=== PATIENT | female | born 1955 | race Caucasian/White ===

== ENCOUNTER 2019-12-21 17:57 | Inpatient (IN) ==
[2019-12-21] MEDS ORDERED: IPRATROPIUM/ALBUTEROL 3 ML AMPUL.NEB NEB ONE ×2 (19:30→23:26)
[2019-12-21] MEDS ORDERED: methylPREDNISolone SOD SUCC 125 MG/2 ML VIAL IV ONE (19:30)
[2019-12-21] MEDS ORDERED: 0.9 % SODIUM CHLORIDE 1,000 ML IV ONE ×2 (19:30→20:52)
--- NOTE | 2019-12-21 19:34 | Emergency Department Note ---
SOB HPI - General Chief Complaint: Cold/Flu Symptoms Stated Complaint: Flu symptoms Time Seen by Provider: 12/21/19 19:03 Source: patient, family Mode of arrival: ambulatory Limitations: no limitations - History of Present Illness 64-year-old female patient presents emergency department with chief complaint of worsening shortness of breath, myalgias, and fevers. Patient was evaluated in our emergency department yesterday by a colleague and diagnosed with for the We dn. She was treated with IV rehydration, steroids, and started on Tamiflu. During her work-up she did have a noted developing right-sided infiltrate on chest x-ray. She admits that the provider recommended that she stay in the hospital but she declined this. Unfortunately, since being at home she has worsened. She continues to be febrile in triage at 100.6 in triage. SPO2 is 88- 91% on room air. She does continue to feel very short of breath. Patient does have a documented history of COPD and is a former smoker. She complains of fulminant body aches throughout. She admits to nausea but no vomiting. She denies diarrhea or constipation. She denies dysuria. She denies focal weak ness. She denies retrosternal chest pain or palpitations. She admits to ongoing sinus congestion. She admits to mild cough. A review of her active problems shows the following: Acute COPD exacerbation, influenza, pneumonia, chest pain at rest, oral thrush, history of tobacco abuse, urinary incontinence, lumbar degenerative disc disease, and multiple joint pain. - Related Data Home Medications Medication Instructions Recorded Confirmed Cock up wrist splint (R) 1 dose .ROUTE .MEDSUPPLY 12/21/19 12/21/19 Previous Rx's Medication Instructions Recorded fluticasone 250 mcg-salmeterol 50 1 inh INHALATION Q12H #180 each 07/09/19 mcg/dose blistr powdr for inhalation citalopram 40 mg tablet 40 mg PO QDAY #90 tab 08/06/19 celecoxib 100 mg capsule 100 mg PO BID #180 cap 10/07/19 ipratropium 20 mcg-albuterol 100 1 puff INHALATION Q6H PRN #4 g 11/06/19 mcg/actuation mist for inhalation tramadol 50 mg tablet 50 mg PO Q6H PRN #100 tab 11/26/19 Albuterol Sulfate [Ventolin] 2 puff INH Q4-6HP PRN #1 inhaler 12/21/19 Oseltamivir Phosphate [Tamiflu] 75 mg PO BID #10 cap 12/21/19 predniSONE [Prednisone] 10 mg PO DAILY #30 tab 12/21/19 Allergies Allergy/AdvReac Type Severity Reaction Status Date / Time No Known Drug Allergies Allergy Unknown Unknown Verified 12/21/19 17:59 Review of Systems All systems ED: reviewed and negative except as stated. Past Medical History - Past Medical History Medical history: Reports: COPD, other (thrush, lumbar DDD) Surgical history ED: Reports: other (carpal tunnel release) - Social History smoking status: Former smoker Physical Exam Limitations: no limitations General appearance: alert, anxious, other (Well-developed, well-nourished, chronically ill appearing 64-year-old female patient sitting upright on the emergency room gurney in obvious discomfort. She is in no apparent respiratory distress. She is speaking in full complete sentences.) Head: atraumatic, normocephalic Eye: Present: normal appearance, PERRL, EOMI. Absent: scleral icterus, conjunctival injection ENT: Present: normal oropharynx, mucous membranes dry, TM's normal bilaterally, nasal congestion (Considerable bilateral nasal erythema) Neck: Present: trachea midline. Absent: lymphadenopathy, thyromegaly Chest: Present: symmetric chest wall rise Respiratory: Present: wheezes (Wheezing heard to the right middle and upper chest), prolonged expiratory phase, decreased breath sounds, other (No rhonchi heard.). Absent: respiratory distress, rales/crackles, stridor, accessory muscle use Cardiovascular: Present: regular rate, normal rhythm. Absent: systolic murmur, diastolic murmur Abdominal: Present: soft. Absent: distention, tenderness, guarding, rebound, rigidity, organomegaly, mass Extremities: Present: normal inspection, full ROM, normal capillary refill. Absent: pedal edema Back: Present: normal inspection, full ROM Neurological: Present: alert, oriented X3 Psychiatric: Present: normal affect, anxious Skin: Present: warm, dry, pallor Course Course Narrative: Patient was brought into the emergency department and a history and physical exam was performed. Saline lock was established and repeat laboratory studies were drawn. Repeat two-view chest x-ray was ordered and reviewed. Patient was given normal saline 1000 mL a bolus. She has already taken her second dose of Tamiflu for today. She was given Solu-Medrol 62.5 mg IVP. She was also started on a duo nebulizer breathing treatment. Patient's SPO2 was noted to be 90-91% on room air. She was started on nasal cannula at 1 L/min. A review of her laboratory studies show the following: CBC WBC 15.9, granulocyte percent 87.3, granulocyte #13.88. CMP glucose 142, alkaline phosphatase 36, all others normal limits. Lactic acid 1.2. Procalcitonin 12.09. Two-view chest x-ray read by the radiologist as diffuse bilateral interstitial infiltrates again noted. There is a new superimposed pneumonia in the periphery of the left upper mid lung. ABG pH 7.43, CO2 34, O2 59, HCO3 22.6. After reviewing the data blood cultures were ordered. Patient was started on Rocephin 1 g and azithromycin 500 mg IV for the new developing pneumonia. After reviewing all the data I reached out to our hospitalist (Dr. Esteves) about possible admission. At this time Dr. Esteves concurs that this is likely a developing bacterial pneumonia associated with the flulike illness she has been suffering from. He is consented to admit the patient to the hospital under his care. At this time all further treatment decisions, modalities, and ultimate patient disposition will be carried out by Dr. Esteves. Vital Signs Temperature 100.6 F H 12/21/19 17:59 Pulse Rate 87 12/21/19 17:59 Respiratory Rate 20 12/21/19 17:59 Blood Pressure 105/66 12/21/19 17:59 Pulse Oximetry (%) 93 12/21/19 17:59 Temperature 98.3 F 12/21/19 20:58 Pulse Rate 82 12/21/19 20:01 Respiratory Rate 16 12/21/19 19:54 Blood Pressure 96/57 12/21/19 20:01 Pulse Oximetry (%) 95 12/21/19 20:01 Shortness of Breath/Dyspnea - Lab Data Lab results reviewed: Yes I reviewed the patient's lab results. Result diagrams: 12/21/19 18:54 12/21/19 18:54 Lab Results 12/21/19 12/21/19 12/21/19 Range/Units 18:54 18:54 18:54 WBC 15.9 H (4.50-11.00) K/mcL RBC 3.90 (3.59-5.38) M/mcL Hgb 12.1 (11.2-15.7) g/dL Hct 35.4 (34.1-44.9) % MCV 90.8 (80.0-100.0) fL MCH 31.0 (26.0-34.0) pg MCHC 34.2 (31.0-36.0) g/dL RDW 12.3 (11.5-14.5) % Plt Count 210 (140-440) K/mcL MPV 11.1 H (7.4-10.4) fL Gran % 87.3 H (38.0-78.0) % Lymph % (Auto) 5.9 L (15.5-49.0) % [place] % (Auto) 6.2 (1.0-12.0) % Eos % (Auto) 0.4 (0.0-7.0) % Baso % (Auto) 0.2 (0.0-2.0) % Gran # 13.88 H (1.80-8.00) K/mcL Lymph # (Auto) 0.93 L (1.50-4.80) K/mcL [place] # (Auto) 0.98 H (0.10-0.90) K/mcL Eos # (Auto) 0.06 (0.00-0.70) K/mcL Baso # (Auto) 0.03 (0.00-0.30) K/mcL VBG Lactic Acid (0.5-2.0) mmol/L Sodium 137 (133-145) mmol/L Potassium 3.7 (3.3-5.1) mmol/L Chloride 102 (96-108) mmol/L Carbon Dioxide 23 (22-30) mmol/L Anion Gap 12.0 (8-16) BUN 20 (8-23) mg/dl Creatinine 0.9 (0.6-1.1) mg/dl GFR Calculation 68 Glucose 142 H (70-105) mg/dL Calcium 8.8 (8.6-10.4) mg/dl Total Bilirubin 0.4 (0.0-1.0) mg/dL AST 14 (0-37) U/l ALT 10 (0-40) U/l Alkaline Phosphatase 36 L (39-117) U/L Total Protein 6.7 (5.9-8.4) gm/dL Albumin 3.6 (3.2-5.2) gm/dL Globulin 3.1 (2.2-3.7) gm/dL Albumin/Globulin Ratio 1.2 (1.0-2.3) Procalcitonin 12.09 (<0.10) ng/mL 12/21/19 Range/Units 19:50 WBC (4.50-11.00) K/mcL RBC (3.59-5.38) M/mcL Hgb (11.2-15.7) g/dL Hct (34.1-44.9) % MCV (80.0-100.0) fL MCH (26.0-34.0) pg MCHC (31.0-36.0) g/dL RDW (11.5-14.5) % Plt Count (140-440) K/mcL MPV (7.4-10.4) fL Gran % (38.0-78.0) % Lymph % (Auto) (15.5-49.0) % [place] % (Auto) (1.0-12.0) % Eos % (Auto) (0.0-7.0) % Baso % (Auto) (0.0-2.0) % Gran # (1.80-8.00) K/mcL Lymph # (Auto) (1.50-4.80) K/mcL [place] # (Auto) (0.10-0.90) K/mcL Eos # (Auto) (0.00-0.70) K/mcL Baso # (Auto) (0.00-0.30) K/mcL VBG Lactic Acid 1.2 (0.5-2.0) mmol/L Sodium (133-145) mmol/L Potassium (3.3-5.1) mmol/L Chloride (96-108) mmol/L Carbon Dioxide (22-30) mmol/L Anion Gap (8-16) BUN (8-23) mg/dl Creatinine (0.6-1.1) mg/dl GFR Calculation Glucose (70-105) mg/dL Calcium (8.6-10.4) mg/dl Total Bilirubin (0.0-1.0) mg/dL AST (0-37) U/l ALT (0-40) U/l Alkaline Phosphatase (39-117) U/L Total Protein (5.9-8.4) gm/dL Albumin (3.2-5.2) gm/dL Globulin (2.2-3.7) gm/dL Albumin/Globulin Ratio (1.0-2.3) Procalcitonin (<0.10) ng/mL - Radiology Data Radiology results reviewed: Yes I reviewed the patient's radiology results. 2 view chest x-ray read by the radiologist as diffuse bilateral interstitial infiltrates again noted. There is a new superimposed pneumonia in the periphery of the left upper mid lung. Disposition Pt seen by [employer]PERATOR/PA only: Yes Clinical Impression: Acute exacerbation of chronic obstructive airways disease, Influenza Pneumonia Qualifiers: Pneumonia type: due to unspecified organism Laterality: left Lung location: upper lobe of lung Qualified Code(s): J18.9 - Pneumonia, unspecified organism Disposition: Xfer As Inpt ([facility]) Condition: Fair Additional Instructions: Patient is being admitted to the hospital under the care of the hospitalist (Dr. Esteves). All further treatment decisions, modalities, and ultimate patient disposition will be carried out by Dr. Esteves. Referrals: Pilo Ramon MD [Primary Care Provider] - Time of Disposition: 21:51
[2019-12-21 19:45] LABS: Basophils # (Auto) 0.03 K/mcL (0.00-0.30); Basophils % (Auto) 0.2 % (0.0-2.0); Eosinophils # (Auto) 0.06 K/mcL (0.00-0.70); Eosinophils % (Auto) 0.4 % (0.0-7.0); Granulocytes % (Auto) 87.3 % (38.0-78.0); Hematocrit 35.4 % (34.1-44.9); Hemoglobin 12.1 g/dL (11.2-15.7); Lymphocytes # (Auto) 0.93 K/mcL (1.50-4.80); Lymphocytes % (Auto) 5.9 % (15.5-49.0); Mean Cell Volume 90.8 fL (80.0-100.0); Mean Corpuscular HGB Conc 34.2 g/dL (31.0-36.0); Mean Platelet Volume 11.1 fL (7.4-10.4); Monocytes # (Auto) 0.98 K/mcL (0.10-0.90); Monocytes % (Auto) 6.2 % (1.0-12.0); Platelet Count 210 K/mcL (140-440); Red Cell Distribution Width 12.3 % (11.5-14.5); WBC 15.9 K/mcL (4.50-11.00)
[2019-12-21 20:00] LABS: ALT/SGPT 10 U/l (0-40); AST/SGOT 14 U/l (0-37); Albumin 3.6 gm/dL (3.2-5.2); Albumin/Globulin Ratio 1.2 (1.0-2.3); Alkaline Phosphatase 36 U/L (39-117); Bilirubin,Total 0.4 mg/dL (0.0-1.0); Blood Urea Nitrogen 20 mg/dl (8-23); Calcium 8.8 mg/dl (8.6-10.4); Carbon Dioxide 23 mmol/L (22-30); Chloride 102 mmol/L (96-108); Globulin 3.1 gm/dL (2.2-3.7); Glomerular Filtration Rate 68; Glucose 142 mg/dL (70-105)
[2019-12-21] MEDS ORDERED: ACETAMINOPHEN 325 MG TABLET PO ONE (20:13)
[2019-12-21] MEDS ORDERED: AZITHROMYCIN 500 MG in DEXTROSE 5% IN WATER 250 ML IV ONE (20:46)
[2019-12-21] MEDS ORDERED: cefTRIAXone 1 GM VIAL IV ONE (20:46)
--- NOTE | 2019-12-21 21:55 | Internal Med History&Physical ---
Medical - H&P: HPI Patient information: Note initiated : 12/21/19 at 9:53 pm Service Date, if different from initiated Date: [] Patient: Tessie Fuentes a 64 y/o F admitted on for Flu symptoms. Chief Complaint: [] History of present illness: Ms. Fuentes is a 64 year old F Who presents the ED for second time in 2 days for shortness of breath myalgias fevers headache. Patient's granddaughter who she sleeps with diagnosed with flu 4 days ago. Shortly thereafter patient started developing body aches fevers and chills headache and shortness of breath and some diarrhea. She came into the ED yesterday was given some treatment as well as a prescription for Tamiflu and prednisone. She went home however returns today because she feels like her shortness of breath and other symptoms are worsening. In the ER yesterday she did have a flu screen test which was negative however given the fact that her granddaughter who is sleeping with her head influenza positive test and patient has the typical symptoms she was treated with Tamiflu. And she has had 2 doses of it. She did have a leukocytosis yesterday which is mildly increased today although she is on prednisone. Her procalcitonin is quite elevated and her follow-up chest x-ray shows a new left upper lobe infiltrate. She does have a productive cough of yellow sputum. Lactate is okay. Per ER note she had a saturation of 88 to 91% on room air. Review of Systems: Pertinent positives as above. Denies vomiting/chest or abdominal pain/. Remaining 10 point review of system reviewed negative Medical - H&P: PMH Medical history: Medical History Pneumonia (Acute) Chest pain at rest (Chronic) Superficial injury of gum with infection (Acute) Thrush, oral (Acute) Yeast infection (Acute 03/09/15) Urinary incontinence (Acute 03/09/15) History of tobacco use (Acute) Acute sinusitis (Acute 03/09/15) Reactive airway disease (Acute) Joint pain (Acute 03/09/15) Degeneration of lumbar intervertebral disc (Acute) Chronic obstructive pulmonary disease (Acute) Depression Past Surgical History Hx of fusion of cervical spine (Acute) History of dental surgery (Acute) History of carpal tunnel repair (Acute) Family History Father Leukemia Mother had COPD Social History (Last Updated 12/04/19 @ 09:24 by Pilo Ramon MD) Patient quit smoking 2013 Denies alcohol use Lives at home with family Medical - H&P: Meds Home Medications Medication Instructions Recorded Confirmed Type fluticasone 250 mcg-salmeterol 50 1 inh INHALATION Q12H #180 each 07/09/19 12/21/19 Rx mcg/dose blistr powdr for inhalation citalopram 40 mg tablet 40 mg PO QDAY #90 tab 08/06/19 12/21/19 Rx celecoxib 100 mg capsule 100 mg PO BID #180 cap 10/07/19 12/21/19 Rx ipratropium 20 mcg-albuterol 100 1 puff INHALATION Q6H PRN #4 g 11/06/19 12/21/19 Rx mcg/actuation mist for inhalation tramadol 50 mg tablet 50 mg PO Q6H PRN #100 tab 11/26/19 12/21/19 Rx Albuterol Sulfate [Ventolin] 2 puff INH Q4-6HP PRN #1 inhaler 12/21/19 12/21/19 Rx Cock up wrist splint (R) 1 dose .ROUTE .MEDSUPPLY 12/21/19 12/21/19 History Oseltamivir Phosphate [Tamiflu] 75 mg PO BID #10 cap 12/21/19 12/21/19 Rx predniSONE [Prednisone] 10 mg PO DAILY #30 tab 12/21/19 12/21/19 Rx Allergies Allergy/AdvReac Type Severity Reaction Status Date / Time No Known Drug Allergies Allergy Unknown Unknown Verified 12/21/19 17:59 Medical - H&P: Exam - Constitutional Vitals: Temp Pulse Resp BP Pulse Ox 98.3 F 82 16 96/57 95 12/21/19 20:58 12/21/19 20:01 12/21/19 19:54 12/21/19 20:01 12/21/19 20:01 Exam: General: Alert, Awake, No acute Distress Eyes/N/T: EOMI, PERRL, dry MM Head/Neck: neck supple, normocephalic atraumatic CV: RRR, No murmurs, normal s1/s2 Pulm: mild b/l wheezing R>L, no rhonchi Abd: soft, nontender, +BS x4 Ext: no clubbing/cyanosis/edema Neuro: Alert, no focal deficits, moves all extremities, CN 2-12 grossly intact, symmetrical strength b/l upper/lower, sensations intact b/l upper/lower Skin: warm/dry Medical - H&P: Reslt - Labs CBC & Chem 7: 12/21/19 18:54 12/21/19 18:54 Labs: Short CBC 12/21/19 Range/Units 18:54 WBC 15.9 H (4.50-11.00) K/mcL Hgb 12.1 (11.2-15.7) g/dL Hct 35.4 (34.1-44.9) % Plt Count 210 (140-440) K/mcL BMP 12/21/19 18:54 Sodium 137 Potassium 3.7 Chloride 102 Carbon Dioxide 23 BUN 20 Creatinine 0.9 Glucose 142 H Calcium 8.8 Liver Function 12/21/19 Range/Units 18:54 Total Bilirubin 0.4 (0.0-1.0) mg/dL AST 14 (0-37) U/l ALT 10 (0-40) U/l Alkaline Phosphatase 36 L (39-117) U/L Albumin 3.6 (3.2-5.2) gm/dL - Impressions Chest x-ray with left upper lobe infiltrate Medical - H&P: A/P - Narrative A/P Narrative: A: *Secondary bacterial infection ([place]): -leukocytosis/elevated PCT *Influenza: *Acute hypoxic respiratory failure: 2/2 above *COPD(does not use home oxygen): *Depression: * P: -Rocephin/Azithro, MRSA screen -pending BC/SC -IVF -resp viral panel -Follow up PCT -nebs and home IH -IS/Acapella -Continue Tamiflu - -ppx: Lovenox full Code
[2019-12-21] MEDS ORDERED: MAGNESIUM SULFATE 2 GM/50 ML BAG IV PRN (22:51)
[2019-12-21] MEDS ORDERED: CITALOPRAM 20 MG TABLET PO PRN (22:51)
[2019-12-21] MEDS ORDERED: diphenhydrAMINE 25 MG CAPSULE PO PRN (22:51)
[2019-12-21] MEDS ORDERED: POTASSIUM CHLORIDE 20 MEQ TABLET PO PRN ×2 (22:51)
[2019-12-21] MEDS ORDERED: IPRATROPIUM/ALBUTEROL 3 ML AMPUL.NEB NEB PRN (22:51)
[2019-12-21] MEDS ORDERED: SENNOSIDES 1 TABLET PO PRN (22:51)
[2019-12-21] MEDS ORDERED: POLYETHYLENE GLYCOL 3350 17 GM PACKET PO PRN (22:51)
[2019-12-21] MEDS ORDERED: ONDANSETRON 4 MG/2 ML VIAL IV PRN (22:51)
[2019-12-21] MEDS ORDERED: POTASSIUM CHLORIDE 40 MEQ in DEXTROSE 5% IN WATER 500 ML IV PRN (22:51)
[2019-12-21] MEDS ORDERED: ACETAMINOPHEN 325 MG TABLET PO PRN (22:51)
[2019-12-21] MEDS: 0.9 % SODIUM CHLORIDE 1,000 ML IV SCH (23:17)
[2019-12-21] MEDS ORDERED: cefTRIAXone 1 GM VIAL ONE (23:19)
[2019-12-21] MEDS: MELATONIN 3 MG TABLET PO SCH (23:27)
[2019-12-21] MEDS: IPRATROPIUM/ALBUTEROL 3 ML AMPUL.NEB NEB SCH (23:30)
[2019-12-21] MEDS: cefTRIAXone 2 GM in DEXTROSE 5% IN WATER 50 ML IV SCH (23:35)
[2019-12-22] MEDS: 0.9 % SODIUM CHLORIDE 10 ML SYRINGE IV SCH ×4 (05:17→20:13)
[2019-12-22] MEDS: 0.9 % SODIUM CHLORIDE 1,000 ML IV SCH (05:29)
[2019-12-22] MEDS ORDERED: IPRATROPIUM/ALBUTEROL 3 ML AMPUL.NEB NEB ONE (05:33)
[2019-12-22] MEDS: IPRATROPIUM/ALBUTEROL 3 ML AMPUL.NEB NEB SCH ×3 (05:38→21:52)
--- NOTE | 2019-12-22 06:31 | XRay Report ---
CLINICAL INFORMATION:Flu symptoms. Dyspnea. TECHNIQUE: PA and lateral upright chest x-ray COMPARISON: Previous chest x-ray dated 12/21/2019 FINDINGS:Bilateral upper lobe infiltrates were demonstrated on previous examination, right worse than left. There are new infiltrates in the left upper lobe. Appearance is consistent with pneumonia. Atypical pneumonia including viral pneumonia should be considered. There is no pleural fluid. Heart size and vascularity are normal. Examination was initially interpreted by [facility] IMPRESSION: 1. Bilateral upper lobe infiltrates. These were demonstrated on 12/21/2019 2. Significant interval worsening with new left upper lobe infiltrates. Appearance is consistent with pneumonia as described above Interpreted and Authenticated by: Jacinto Juarez 12/22/19
[2019-12-22 07:10] LABS: ALT/SGPT 12 U/l (0-40); AST/SGOT 18 U/l (0-37); Albumin 2.8 gm/dL (3.2-5.2); Albumin/Globulin Ratio 0.8 (1.0-2.3); Alkaline Phosphatase 38 U/L (39-117); Bilirubin,Direct < 0.2 mg/dL (0.0-0.3); Bilirubin,Total 0.2 mg/dL (0.0-1.0); Blood Urea Nitrogen 19 mg/dl (8-23); Calcium 8.3 mg/dl (8.6-10.4); Carbon Dioxide 19 mmol/L (22-30); Globulin 3.4 gm/dL (2.2-3.7); Glomerular Filtration Rate 68; Glucose 192 mg/dL (70-105); Lactate Dehydrogenase 215 U/L (94-250); Triglycerides 112 mg/dl (<150); Uric Acid 3.8 mg/dL (2.5-8.0)
[2019-12-22 07:12] LABS: Chloride 109 mmol/L (96-108); Phosphorous 1.9 mg/dL (2.7-4.5)
[2019-12-22] MEDS: traMADol 50 MG TABLET PO PRN ×2 (07:48→20:08)
[2019-12-22 08:01] LABS: Basophils # (Auto) 0.05 K/mcL (0.00-0.30); Basophils % (Auto) 0.4 % (0.0-2.0); Eosinophils # (Auto) 0.15 K/mcL (0.00-0.70); Eosinophils % (Auto) 1.1 % (0.0-7.0); Granulocytes % (Auto) 86.1 % (38.0-78.0); Hematocrit 39.1 % (34.1-44.9); Hemoglobin 12.5 g/dL (11.2-15.7); Lymphocytes # (Auto) 1.15 K/mcL (1.50-4.80); Lymphocytes % (Auto) 8.2 % (15.5-49.0); Mean Cell Volume 96.3 fL (80.0-100.0); Mean Platelet Volume 11.1 fL (7.4-10.4); Monocytes # (Auto) 0.59 K/mcL (0.10-0.90); Monocytes % (Auto) 4.2 % (1.0-12.0); Platelet Count 202 K/mcL (140-440); RBC 4.06 M/mcL (3.59-5.38); Red Cell Distribution Width 12.4 % (11.5-14.5); WBC 14.1 K/mcL (4.50-11.00)
--- NOTE | 2019-12-22 08:29 | Internal Med Progress Note ---
Medical - PN: Subj Patient information: Note initiated : 12/22/19 at 8:24 am Service Date, if different from initiated Date: [] Patient: Tessie Fuentes a 64 y/o F admitted on 12/21/19 for Flu symptoms. Chief Complaint: [] Interval history: Ms. Fuentes is a 64 year old F Who presents the ED for second time in 2 days for shortness of breath myalgias fevers headache. Patient's granddaughter who she sleeps with diagnosed with flu 4 days ago. Shortly thereafter patient started developing body aches fevers and chills headache and shortness of breath and some diarrhea. She came into the ED yesterday was given some treatment as well as a prescription for Tamiflu and prednisone. She went home however returns today because she feels like her shortness of breath and other symptoms are worsening. In the ER yesterday she did have a flu screen test which was negative however given the fact that her granddaughter who is sleeping with her head influenza positive test and patient has the typical symptoms she was treated with Tamiflu. And she has had 2 doses of it. She did have a leukocytosis yesterday which is mildly increased today although she is on prednisone. Her procalcitonin is quite elevated and her follow-up chest x-ray shows a new left upper lobe infiltrate. She does have a productive cough of yellow sputum. Lactate is okay. Per ER note she had a saturation of 88 to 91% on room air. 12/22 Much better today. Occasional cough. Shortness of breath still present but not as bad as yesterday. [place] feverish overnight. Review of Systems: denies headache/nausea/vomiting/chest or abdominal pain/diarrhea. Otherwise see above. - Constitutional Vitals: Vital Signs Temp Pulse Resp BP Pulse Ox 97.0 F 60 22 86/45 95 12/22/19 03:38 12/22/19 05:01 12/22/19 05:01 12/22/19 05:01 12/22/19 05:01 Period Temp Pulse Resp BP Sys/[place] Pulse Ox Last 24 Hr 97.0 F-100.6 F 51-94 16-23 72-112/43-69 91-97 Intake and Output 12/21/19 12/22/19 12/22/19 21:59 05:59 13:59 Intake Total 1000 2300 240 Output Total 400 500 Balance 1000 1900 -260 Weight 81.647 kg 82.826 kg Intake & Output: Intake & Output 12/21/19 12/22/19 12/22/19 21:59 05:59 13:59 Intake Total 1000 2300 240 Output Total 400 500 Balance 1000 1900 -260 Weight 81.647 kg 82.826 kg Intake: IV 1000 2180 Sodium Chloride 0.9% 1,000 ml @ 1000 1930 150 mls/hr IV .Q6H40M [facility] Rx#: [id number] Zithromax 500 mg In Dextrose 5% 250 in Water 250 ml @ 250 mls/hr IV ONCE ONE Rx#:[id number] Oral 120 240 Output: Void Amount 400 Urine/Stool Mix 500 Other: Stool Color Brown Stool Consistency Loose Exam: General: Alert, Awake, No acute Distress Eyes/N/T: EOMI, Head/Neck: neck supple, CV: RRR, No murmurs, Pulm: mild b/l wheezing/rhonchi, Abd: soft, nontender, +BS x4 Ext: no clubbing/cyanosis/edema Neuro: Alert, no focal deficits, moves all extremities, Skin: warm/dry Medical - PN: Obj Da - Labs CBC & Chem 7: 12/22/19 05:25 12/22/19 05:25 Labs: Abnormal Lab Results 12/22/19 12/22/19 12/21/19 05:25 05:25 18:54 WBC 14.1 H MPV 11.1 H Gran % 86.1 H Lymph % (Auto) 8.2 L Gran # 12.12 H Lymph # (Auto) 1.15 L [place] # (Auto) Chloride 109 H Carbon Dioxide 19 L Glucose 192 H 142 H Calcium 8.3 L Phosphorus 1.9 L Alkaline Phosphatase 38 L 36 L Albumin 2.8 L Albumin/Globulin Ratio 0.8 L 12/21/19 18:54 WBC 15.9 H MPV 11.1 H Gran % 87.3 H Lymph % (Auto) 5.9 L Gran # 13.88 H Lymph # (Auto) 0.93 L [place] # (Auto) 0.98 H Chloride Carbon Dioxide Glucose Calcium Phosphorus Alkaline Phosphatase Albumin Albumin/Globulin Ratio Meds: Medications Acetaminophen (Tylenol) 650 mg PO Q6HP PRN PRN Reason: PAIN/FEVER > 101 Albuterol/Ipratropium (Duoneb) 3 ml NEB Q8H [facility] Last Admin: 12/22/19 05:38 Dose: 3 ml Documented by: Albuterol/Ipratropium (Duoneb) 3 ml NEB Q4HP PRN PRN Reason: Shortness Of Breath Citalopram Hydrobromide (Celexa) 40 mg PO DAILYP PRN PRN Reason: Pain Diphenhydramine HCl (Benadryl) 25 mg PO HSP PRN PRN Reason: Insomnia Enoxaparin Sodium (Lovenox) 40 mg SQ DAILY [facility] Potassium Chloride 40 meq/ (Dextrose) 520 mls @ 130 mls/hr IV UD PRN PRN Reason: Potassium < 3 Magnesium Sulfate (Magnesium Sulfate) 2 gm in 50 mls @ 50 mls/hr IV UD PRN PRN Reason: Magnesium </= 1.6 Sodium Chloride (Sodium Chloride 0.9%) 1,000 mls @ 150 mls/hr IV .Q6H40M [facility] Stop: 12/22/19 12:10 Last Admin: 12/22/19 05:29 Dose: 150 mls/hr Documented by: Ceftriaxone Sodium 2 gm/ (Dextrose) 50 mls @ 100 mls/hr IV Q24H [facility]; Protocol Last Admin: 12/21/19 23:35 Dose: Not Given Documented by: Melatonin (Melatonin 3mg Tablet) 3 mg PO QHS [facility] Last Admin: 12/21/19 23:27 Dose: 3 mg Documented by: Non-Formulary Medication (Celecoxib) 100 mg PO BID [facility] Ondansetron HCl (Zofran) 4 mg IV Q4HP PRN PRN Reason: Nausea And Vomiting Oseltamivir Phosphate (Tamiflu) 75 mg PO BID [facility] Polyethylene Glycol (Miralax) 17 gm PO DAILYP PRN PRN Reason: Constipation Potassium Chloride (Kdur) 40 meq PO UD PRN PRN Reason: Potssium is 3-3.5 Potassium Chloride (Kdur) 40 meq PO UD PRN PRN Reason: Potassium < 3 Fluticasone/Salmeterol (Advair 250-50 Diskus) 1 puff INH Q12 [facility] Senna (Senokot) 2 tab PO DAILYP PRN PRN Reason: Constipation Sodium Chloride (Saline Flush) 10 ml IV Q8 [facility] Last Admin: 12/22/19 05:17 Dose: Not Given Documented by: Tramadol HCl (Ultram) 50 mg PO Q6H PRN PRN Reason: pain Last Admin: 12/22/19 07:48 Dose: 50 mg Documented by: Medical - PN: A/P - Time Spent With Patient Total time spent is greater than 50% in coordination of care (as documented) at patient's floor/unit and/or counseling patient: - Narrative A/P Narrative: A: *Secondary bacterial infection ([place]): -leukocytosis/elevated PCT -Sputum stain with GPC in pairs *Influenza: empirically started treatment in ED given symptoms and close family member positive -good sats on 2L, wean *Acute hypoxic respiratory failure: 2/2 above *COPD(does not use home oxygen): *Depression: * P: -Rocephin/Azithro, MRSA screen neg -pending BC/SC -IVF -Follow up PCT -nebs and home IH -IS/Acapella -Continue Tamiflu - -ppx: Lovenox full Code
[2019-12-22] MEDS ORDERED: CELECOXIB 100 MG PO SCH (09:00)
[2019-12-22 09:50] LABS: Band Neutrophils % 21 % (0-10); Lymphocytes % 5 % (15-49); Monocytes % (Manual) 2 % (1-12); Platelet Estimate NORMAL (NORMAL); RBC Morphology NORMAL (NORMAL); Segmented Neutrophils % 72 % (38-78)
[2019-12-22] MEDS: PHOSPHORUS 250 MG TABLET PO SCH ×3 (10:03→20:08)
[2019-12-22] MEDS: OSELTAMIVIR PHOSPHATE 75 MG CAPSULE PO SCH ×2 (10:03→20:07)
[2019-12-22] MEDS: ENOXAPARIN 40 MG/0.4 ML SYRINGE SQ SCH (10:03)
--- NOTE | 2019-12-22 10:12 | Discharge Summary ---
Medical - DS: Prov Patient information: Note initiated : 12/22/19 at 10:10 am Service Date, if different from initiated Date: [] Patient: Tessie Fuentes a 64 y/o F admitted on 12/21/19 for Flu symptoms. Chief Complaint: [] Date of admission: 12/21/19 22:45 Discharge date: 12/25/19 Primary care physician: Pilo Ramon Consults: 12/21/19 Consult to Physician [CONS] Stat Comment: Consulting Provider: Marck Esteves Reason For Exam: Physician to Consult Medical - DS: Meds - Discharge Medications Prescriptions: Amoxicillin/Potassium Clav [Augmentin] 875 mg PO Q12H #3 tab Active and Home Medications: Home Medications fluticasone 250 mcg-salmeterol 50 mcg/dose blistr powdr for inhalation 1 inh INHALATION Q12H #180 each 07/09/19 [Rx Confirmed 12/21/19 Last Taken Unknown] citalopram 40 mg tablet 40 mg PO QDAY #90 tab 08/06/19 [Rx Confirmed 12/21/19 Last Taken Unknown] celecoxib 100 mg capsule 100 mg PO BID #180 cap 10/07/19 [Rx Confirmed 12/21/19 Last Taken Unknown] ipratropium 20 mcg-albuterol 100 mcg/actuation mist for inhalation 1 puff INHALATION Q6H PRN #4 g 11/06/19 [Rx Confirmed 12/21/19 Last Taken Unknown] tramadol 50 mg tablet 50 mg PO Q6H PRN #100 tab 11/26/19 [Rx Confirmed 12/21/19 Last Taken Unknown] Albuterol Sulfate [Ventolin] 2 puff INH Q4-6HP PRN #1 inhaler 12/21/19 [Rx Confirmed 12/21/19 Last Taken Unknown] Cock up wrist splint (R) 1 dose .ROUTE .MEDSUPPLY 12/21/19 [History Confirmed 12/21/19 Last Taken Unknown] Oseltamivir Phosphate [Tamiflu] 75 mg PO BID #10 cap 12/21/19 [Rx Confirmed 12/21/19 Last Taken Unknown] predniSONE [Prednisone] 10 mg PO DAILY #30 tab 12/21/19 [Rx Confirmed 12/21/19 Last Taken Unknown] Medical - DS: Hosp Hospital Course: Ms. Fuentes is a 64 year old F Who presents the ED for second time in 2 days for shortness of breath myalgias fevers headache. Patient's granddaughter who she sleeps with diagnosed with flu 4 days ago. Shortly thereafter patient started developing body aches fevers and chills headache and shortness of breath and some diarrhea. She came into the ED yesterday was given some treatment as well as a prescription for Tamiflu and prednisone. She went home however returns today because she feels like her shortness of breath and other symptoms are worsening. In the ER yesterday she did have a flu screen test which was negative however given the fact that her granddaughter who is sleeping with her head influenza positive test and patient has the typical symptoms she was treated with Tamiflu. And she has had 2 doses of it. She did have a leukocytosis yesterday which is mildly increased today although she is on prednisone. Her procalcitonin is quite elevated and her follow-up chest x-ray shows a new left upper lobe infiltrate. She does have a productive cough of yellow sputum. Lactate is okay. Per ER note she had a saturation of 88 to 91% on room air. 12/22 Much better today. Occasional cough. Shortness of breath still present but not as bad as yesterday. [place] feverish overnight. 12/23 Patient says she does not feel that great this morning had a poor night sleep with the alarm going off since she went to the mid 40s of her heart rate while sleeping although she was asymptomatic, it was sinus. She has her productive cough. Tired today. Rate currently 60-70s. 12/24 nurse reported HR 154-174 last night but this was artifact. Sinus bradycardia while asleep asymptomatic, nurse reported rate in 30's while sleeping. HR 50's EKG, sinus with occasional PVC. Patient slept okay except for the alarms that kept waking up when her heart rate will drop. She did not feel anything. Per nurses they did put oxygen on her because when she was sleeping she would drop in the 80s. Patient still feels short of breath but better than when she came in. Coughing less. Has some chronic back pain. 12/25 Doing well. Patient does get bradycardic while sleeping but is completely asym ptomatic. Feeling well and good oxygenation on room air. Patient stable for discharge. A: *Secondary bacterial infection (COLEMAN) Streptococcus pneumoniae: *Influenza: empirically started treatment in ED given symptoms and close family member positive -although resp viral panel showed Human Metapneumovirus only *Acute hypoxic respiratory failure: 2/2 above *AECOPD(does not use home oxygen)/Bronchospams: *Depression: *Sinus Bradycardia while sleeping: asymptomatic Discharge diagnosis: Influenza secondary bacterial pneumonia cute hypoxic re spite failure Secondary discharge diagnosis: COPD depression human Metapneumovirus - Time Spent with Patient Total time spent providing and/or coordinating discharge services: Greater than 30 minutes Medical - DS: Exam - Constitutional Vitals: Vital Signs Temp Pulse Resp BP Pulse Ox 12/22/19 07:45 94 12/22/19 05:01 60 22 86/45 95 12/22/19 03:38 97.0 F 58 L 23 H 100/60 97 12/22/19 02:19 77 18 95 12/22/19 02:09 72 19 90/61 96 12/22/19 02:07 76 21 85/59 96 12/22/19 01:01 51 L 20 90/55 91 12/22/19 00:06 69 18 93 12/22/19 00:01 69 21 72/43 93 12/21/19 23:50 67 18 95 12/21/19 23:40 67 18 12/21/19 23:15 67 18 100/64 93 12/21/19 22:51 98.3 F 82 16 96/57 95 12/21/19 22:31 73 93/64 94 12/21/19 22:16 75 95/65 92 12/21/19 21:46 71 101/64 95 12/21/19 21:31 79 100/61 95 12/21/19 21:22 81 101/56 94 12/21/19 21:16 85 94/66 92 12/21/19 21:01 81 90/64 94 12/21/19 20:58 98.3 F 12/21/19 20:46 81 94/59 94 12/21/19 20:34 86 88/64 91 12/21/19 20:19 100.6 F H 12/21/19 20:01 82 96/57 95 12/21/19 19:55 81 100/57 91 12/21/19 19:54 86 16 12/21/19 19:31 81 99/58 92 12/21/19 19:17 91 H 100/57 91 02/22/20 19:02 18 12/21/19 19:01 94 H 112/59 92 12/21/19 18:47 88 98/69 93 12/21/19 18:31 86 99/58 91 12/21/19 18:16 88 101/64 92 12/21/19 18:09 89 105/66 93 12/21/19 17:59 100.6 F H 87 20 105/66 93 Intake and Output 12/21/19 12/22/19 12/22/19 21:59 05:59 13:59 Intake Total 1000 2300 240 Output Total 400 500 Balance 1000 1900 -260 Intake: IV 1000 2180 Sodium Chloride 0.9% 1,000 ml @ 1000 1930 150 mls/hr IV .Q6H40M [facility] Rx#: [id number] Zithromax 500 mg In Dextrose 5% 250 in Water 250 ml @ 250 mls/hr IV ONCE ONE Rx#:[id number] Oral 120 240 Output: Void Amount 400 Urine/Stool Mix 500 Other: Stool Size Small Stool Color Brown Stool Consistency Loose Weight 81.647 kg 82.826 kg Medical - DS: Data Labs on day of discharge: Labs from last 24 hours 12/22/19 12/22/19 12/22/19 05:25 05:25 05:25 WBC 14.1 H RBC 4.06 Hgb 12.5 Hct 39.1 MCV 96.3 MCH 30.8 MCHC 32.0 RDW 12.4 Plt Count 202 MPV 11.1 H Gran % 86.1 H Lymph % (Auto) 8.2 L [place] % (Auto) 4.2 Eos % (Auto) 1.1 Baso % (Auto) 0.4 Gran # 12.12 H Lymph # (Auto) 1.15 L [place] # (Auto) 0.59 Eos # (Auto) 0.15 Baso # (Auto) 0.05 Total Counted 100 Seg Neutrophils % 72 Band Neutrophils % 21 H Lymphocytes % 5 L Monocytes % (Manual) 2 Differential Comment * Platelet Estimate Normal RBC Morphology Normal VBG Lactic Acid Sodium 137 Potassium 3.6 Chloride 109 H Carbon Dioxide 19 L Anion Gap 9.0 BUN 19 Creatinine 0.9 GFR Calculation 68 Glucose 192 H Uric Acid 3.8 Calcium 8.3 L Phosphorus 1.9 L Magnesium 1.9 Total Bilirubin 0.2 Direct Bilirubin < 0.2 GGT 11 AST 18 ALT 12 Alkaline Phosphatase 38 L Lactate Dehydrogenase 215 Total Protein 6.2 Albumin 2.8 L Globulin 3.4 Albumin/Globulin Ratio 0.8 L Triglycerides 112 Procalcitonin 12/22/19 12/21/19 12/21/19 05:25 19:50 18:54 WBC RBC Hgb Hct MCV MCH MCHC RDW Plt Count MPV Gran % Lymph % (Auto) [place] % (Auto) Eos % (Auto) Baso % (Auto) Gran # Lymph # (Auto) [place] # (Auto) Eos # (Auto) Baso # (Auto) Total Counted Seg Neutrophils % Band Neutrophils % Lymphocytes % Monocytes % (Manual) Differential Comment Platelet Estimate RBC Morphology VBG Lactic Acid 1.2 Sodium Potassium Chloride Carbon Dioxide Anion Gap BUN Creatinine GFR Calculation Glucose Uric Acid Calcium Phosphorus Magnesium Total Bilirubin Direct Bilirubin GGT AST ALT Alkaline Phosphatase Lactate Dehydrogenase Total Protein Albumin Globulin Albumin/Globulin Ratio Triglycerides Procalcitonin 12.75 12.09 12/21/19 12/21/19 18:54 18:54 WBC 15.9 H RBC 3.90 Hgb 12.1 Hct 35.4 MCV 90.8 MCH 31.0 MCHC 34.2 RDW 12.3 Plt Count 210 MPV 11.1 H Gran % 87.3 H Lymph % (Auto) 5.9 L [place] % (Auto) 6.2 Eos % (Auto) 0.4 Baso % (Auto) 0.2 Gran # 13.88 H Lymph # (Auto) 0.93 L [place] # (Auto) 0.98 H Eos # (Auto) 0.06 Baso # (Auto) 0.03 Total Counted Seg Neutrophils % Band Neutrophils % Lymphocytes % Monocytes % (Manual) Differential Comment Platelet Estimate RBC Morphology VBG Lactic Acid Sodium 137 Potassium 3.7 Chloride 102 Carbon Dioxide 23 Anion Gap 12.0 BUN 20 Creatinine 0.9 GFR Calculation 68 Glucose 142 H Uric Acid Calcium 8.8 Phosphorus Magnesium Total Bilirubin 0.4 Direct Bilirubin GGT AST 14 ALT 10 Alkaline Phosphatase 36 L Lactate Dehydrogenase Total Protein 6.7 Albumin 3.6 Globulin 3.1 Albumin/Globulin Ratio 1.2 Triglycerides Procalcitonin Medical - DS: A/P - Patient/Caregiver Discharge Instructions Activity: increase activity as tolerated Diet: Regular Diet Prescriptions: Amoxicillin/Potassium Clav [Augmentin] 875 mg PO Q12H #3 tab - Follow up Plan Follow up with: Seeber,Pilo, MD [Primary Care Provider] - 12/31/19 9:45 am Disposition: Home, Self-Care Care Plan Goals: This discharge packet is provided to you to help keep you informed about your care. We want to ensure you get everything you need when you go home. You will also be receiving a call from us in a few days to follow up with you and see how you are doing since your discharge. This gives us a chance to listen to any concerns you maybe experiencing since you were discharged or any additional needs you may have, as well as providing us feedback on your care experience. We strive to always provide excellent care and thank you for your feedback and for choosing [facility]. Prognosis: Fair Rehab Potential: Fair Overall status at discharge: patient is progressing back to baseline
[2019-12-22] MEDS: FLUTICASONE/SALMETEROL 250/50 INHALER #14 INH SCH ×2 (13:01→20:10)
[2019-12-22] MEDS ORDERED: cefTRIAXone 2 GM VIAL ONE (13:28)
[2019-12-22] MEDS: cefTRIAXone 2 GM in DEXTROSE 5% IN WATER 50 ML IV SCH ×2 (13:32→14:49)
[2019-12-22] MEDS: MELATONIN 3 MG TABLET PO SCH (21:00)
[2019-12-23 06:54] LABS: Hematocrit 30.7 % (34.1-44.9); Mean Corpuscular HGB Conc 32.6 g/dL (31.0-36.0); Mean Platelet Volume 11.4 fL (7.4-10.4); Platelet Count 234 K/mcL (140-440); Red Cell Distribution Width 12.9 % (11.5-14.5); WBC 13.3 K/mcL (4.50-11.00)
[2019-12-23 07:12] LABS: ALT/SGPT 12 U/l (0-40); AST/SGOT 14 U/l (0-37); Albumin 2.6 gm/dL (3.2-5.2); Albumin/Globulin Ratio 0.9 (1.0-2.3); Alkaline Phosphatase 32 U/L (39-117); Bilirubin,Direct < 0.2 mg/dL (0.0-0.3); Bilirubin,Total 0.2 mg/dL (0.0-1.0); Blood Urea Nitrogen 22 mg/dl (8-23); Calcium 8.2 mg/dl (8.6-10.4); Glomerular Filtration Rate 92; Glucose 120 mg/dL (70-105); Lactate Dehydrogenase 158 U/L (94-250); Triglycerides 153 mg/dl (<150); Uric Acid 4.4 mg/dL (2.5-8.0)
[2019-12-23 07:17] LABS: Carbon Dioxide 24 mmol/L (22-30); Chloride 110 mmol/L (96-108); Phosphorous 2.5 mg/dL (2.7-4.5)
[2019-12-23] MEDS: IPRATROPIUM/ALBUTEROL 3 ML AMPUL.NEB NEB SCH ×3 (07:28→22:50)
[2019-12-23] MEDS ORDERED: predniSONE 20 MG TABLET PO SCH (08:00)
--- NOTE | 2019-12-23 08:23 | Internal Med Progress Note ---
Medical - PN: Subj Patient information: Note initiated : 12/23/19 at 8:20 am Service Date, if different from initiated Date: [] Patient: Tessie Fuentes a 64 y/o F admitted on 12/21/19 for Flu symptoms. Chief Complaint: [] Interval history: Ms. Fuentes is a 64 year old F Who presents the ED for second time in 2 days for shortness of breath myalgias fevers headache. Patient's granddaughter who she sleeps with diagnosed with flu 4 days ago. Shortly thereafter patient started developing body aches fevers and chills headache and shortness of breath and some diarrhea. She came into the ED yesterday was given some treatment as well as a prescription for Tamiflu and prednisone. She went home however returns today because she feels like her shortness of breath and other symptoms are worsening. In the ER yesterday she did have a flu screen test which was negative however given the fact that her granddaughter who is sleeping with her head influenza positive test and patient has the typical symptoms she was treated with Tamiflu. And she has had 2 doses of it. She did have a leukocytosis yesterday which is mildly increased today although she is on prednisone. Her procalcitonin is quite elevated and her follow-up chest x-ray shows a new left upper lobe infiltrate. She does have a productive cough of yellow sputum. Lactate is okay. Per ER note she had a saturation of 88 to 91% on room air. 12/22 Much better today. Occasional cough. Shortness of breath still present but not as bad as yesterday. [place] feverish overnight. 12/23 Patient says she does not feel that great this morning had a poor night sleep with the alarm going off since she went to the mid 40s of her heart rate while sleeping although she was asymptomatic, it was sinus. She has her productive cough. Tired today. Rate currently 60-70s. Review of Systems: denies headache/nausea/vomiting/chest or abdominal pain/diarrhea. Otherwise see above. - Constitutional Vitals: Vital Signs Temp Pulse Resp BP Pulse Ox 99.1 F H 59 L 17 112/66 93 12/23/19 08:00 12/23/19 08:05 12/23/19 08:05 12/23/19 08:00 12/23/19 08:05 Period Temp Pulse Resp BP Sys/[place] Pulse Ox Last 24 Hr 97.4 F-99.1 F 39-74 14-93 77-127/51-72 89-97 Intake and Output 12/22/19 12/23/19 12/23/19 21:59 05:59 13:59 Intake Total 1220 600 Output Total 375 350 Balance 845 250 Intake & Output: Intake & Output 12/22/19 12/23/19 12/23/19 21:59 05:59 13:59 Intake Total 1220 600 Output Total 375 350 Balance 845 250 Intake: Oral 1220 600 Output: Void Amount 350 Urine/Stool Mix 375 Other: Meal Dinner Percent of Meal Consumed 100% Feeding Ability Independent Urine Appearance Clear Urine Color Bright Yellow Dark Yellow Exam: General: Alert, Awake, No acute Distress Eyes/N/T: EOMI, Head/Neck: neck supple, CV: RRR, No murmurs, Pulm: mild b/l wheezing exp improving, Abd: soft, nontender, +BS x4 Ext: no clubbing/cyanosis/edema Neuro: Alert, no focal deficits, moves all extremities, Skin: warm/dry Medical - PN: Obj Da - Labs CBC & Chem 7: 12/23/19 05:30 12/23/19 05:30 Labs: Abnormal Lab Results 12/23/19 12/23/19 12/22/19 05:30 05:30 05:25 WBC 13.3 H RBC 3.30 L Hgb 10.0 L Hct 30.7 L MPV 11.4 H Gran % Lymph % (Auto) Gran # Lymph # (Auto) [place] # (Auto) Band Neutrophils % 21 H Lymphocytes % 5 L Chloride 110 H Carbon Dioxide Glucose 120 H Calcium 8.2 L Phosphorus 2.5 L Alkaline Phosphatase 32 L Total Protein 5.6 L Albumin 2.6 L Albumin/Globulin Ratio 0.9 L Triglycerides 153 H 12/22/19 12/22/19 12/21/19 05:25 05:25 18:54 WBC 14.1 H RBC Hgb Hct MPV 11.1 H Gran % 86.1 H Lymph % (Auto) 8.2 L Gran # 12.12 H Lymph # (Auto) 1.15 L [place] # (Auto) Band Neutrophils % Lymphocytes % Chloride 109 H Carbon Dioxide 19 L Glucose 192 H 142 H Calcium 8.3 L Phosphorus 1.9 L Alkaline Phosphatase 38 L 36 L Total Protein Albumin 2.8 L Albumin/Globulin Ratio 0.8 L Triglycerides 12/21/19 18:54 WBC 15.9 H RBC Hgb Hct MPV 11.1 H Gran % 87.3 H Lymph % (Auto) 5.9 L Gran # 13.88 H Lymph # (Auto) 0.93 L [place] # (Auto) 0.98 H Band Neutrophils % Lymphocytes % Chloride Carbon Dioxide Glucose Calcium Phosphorus Alkaline Phosphatase Total Protein Albumin Albumin/Globulin Ratio Triglycerides Meds: Medications Acetaminophen (Tylenol) 650 mg PO Q6HP PRN PRN Reason: PAIN/FEVER > 101 Last Admin: 12/22/19 13:32 Dose: 650 mg Documented by: Albuterol/Ipratropium (Duoneb) 3 ml NEB Q8H [facility]AVEN[facility] Last Admin: 12/23/19 07:28 Dose: 3 ml Documented by: Albuterol/Ipratropium (Duoneb) 3 ml NEB Q4HP PRN PRN Reason: Shortness Of Breath Last Admin: 12/22/19 14:07 Dose: 3 ml Documented by: Citalopram Hydrobromide (Celexa) 40 mg PO DAILYP PRN PRN Reason: Pain Last Admin: 12/22/19 20:08 Dose: 40 mg Documented by: Diphenhydramine HCl (Benadryl) 25 mg PO HSP PRN PRN Reason: Insomnia Enoxaparin Sodium (Lovenox) 40 mg SQ DAILY [facility] Last Admin: 12/22/19 10:03 Dose: 40 mg Documented by: Potassium Chloride 40 meq/ (Dextrose) 520 mls @ 130 mls/hr IV UD PRN PRN Reason: Potassium < 3 Magnesium Sulfate (Magnesium Sulfate) 2 gm in 50 mls @ 50 mls/hr IV UD PRN PRN Reason: Magnesium </= 1.6 Ceftriaxone Sodium 2 gm/ (Dextrose) 50 mls @ 100 mls/hr IV Q24H HEAVENLY; Protocol Last Admin: 12/22/19 14:49 Dose: Not Given Documented by: Melatonin (Melatonin 3mg Tablet) 3 mg PO QHS [facility]AVENLY Last Admin: 12/22/19 21:00 Dose: 3 mg Documented by: Ondansetron HCl (Zofran) 4 mg IV Q4HP PRN PRN Reason: Nausea And Vomiting Oseltamivir Phosphate (Tamiflu) 75 mg PO BID [facility] Last Admin: 12/22/19 20:07 Dose: 75 mg Documented by: Polyethylene Glycol (Miralax) 17 gm PO DAILYP PRN PRN Reason: Constipation Potassium Chloride (Kdur) 40 meq PO UD PRN PRN Reason: Potssium is 3-3.5 Potassium Chloride (Kdur) 40 meq PO UD PRN PRN Reason: Potassium < 3 Fluticasone/Salmeterol (Advair 250-50 Diskus) 1 puff INH Q12 [facility] Last Admin: 12/22/19 20:10 Dose: 1 puff Documented by: Senna (Senokot) 2 tab PO DAILYP PRN PRN Reason: Constipation Sodium Chloride (Saline Flush) 10 ml IV Q8 [facility] Last Admin: 12/22/19 20:13 Dose: 10 ml Documented by: Tramadol HCl (Ultram) 50 mg PO Q6H PRN PRN Reason: pain Last Admin: 12/22/19 20:08 Dose: 50 mg Documented by: Medical - PN: A/P - Time Spent With Patient Total time spent is greater than 50% in coordination of care (as documented) at patient's floor/unit and/or counseling patient: - Narrative A/P Narrative: A: *Secondary bacterial infection ([place]LEMAN): -leukocytosis/elevated PCT improving -Sputum stain with GPC in pairs *Influenza: empirically started treatment in ED given symptoms and close family member positive *Acute hypoxic respiratory failure: 2/2 above -now on room air, but did drop last night to 80's while sleeping and was temporally put on oxygen overnight n *COPD(does not use home oxygen): *Bronchospams: *Depression: * P: -Rocephin/Azithro, MRSA screen neg -pending BC/SC -IS/Acapella -Follow up PCT -prednisone -nebs and home IH -IS/Acapella -Continue Tamiflu -ppx: Lovenox full Code
[2019-12-23] MEDS: OSELTAMIVIR PHOSPHATE 75 MG CAPSULE PO SCH ×2 (08:34→20:48)
[2019-12-23] MEDS: FLUTICASONE/SALMETEROL 250/50 INHALER #14 INH SCH ×3 (08:35→20:48)
[2019-12-23] MEDS: ENOXAPARIN 40 MG/0.4 ML SYRINGE SQ SCH (08:35)
[2019-12-23] MEDS: cefTRIAXone 2 GM in DEXTROSE 5% IN WATER 50 ML IV SCH (08:36)
[2019-12-23] MEDS: traMADol 50 MG TABLET PO PRN ×2 (08:36→20:54)
[2019-12-23] MEDS: 0.9 % SODIUM CHLORIDE 10 ML SYRINGE IV SCH ×3 (08:44→20:49)
[2019-12-23 08:59] LABS: Band Neutrophils % 2 % (0-10); Lymphocytes % 11 % (15-49); Metamyelocytes % 1 % (0-0); Monocytes % (Manual) 2 % (1-12); Myelocytes % 2 % (0-0); Platelet Estimate NORMAL (NORMAL); RBC Morphology NORMAL (NORMAL); Segmented Neutrophils % 82 % (38-78)
[2019-12-23] MEDS ORDERED: LOPERAMIDE 2 MG CAPSULE PO PRN (09:13)
[2019-12-23] MEDS ORDERED: CITALOPRAM 20 MG TABLET PO PRN (12:33)
[2019-12-23] MEDS ORDERED: POLYETHYLENE GLYCOL 3350 17 GM PACKET PO PRN (12:33)
[2019-12-23] MEDS ORDERED: ONDANSETRON 4 MG/2 ML VIAL IV PRN (12:33)
[2019-12-23] MEDS ORDERED: ACETAMINOPHEN 325 MG TABLET PO PRN (12:33)
[2019-12-23] MEDS ORDERED: MAGNESIUM SULFATE 2 GM/50 ML BAG IV PRN (12:33)
[2019-12-23] MEDS ORDERED: SENNOSIDES 1 TABLET PO PRN (12:33)
[2019-12-23] MEDS ORDERED: POTASSIUM CHLORIDE 20 MEQ TABLET PO PRN ×2 (12:33)
[2019-12-23] MEDS ORDERED: POTASSIUM CHLORIDE 40 MEQ in DEXTROSE 5% IN WATER 500 ML IV PRN (12:33)
[2019-12-23] MEDS: MELATONIN 3 MG TABLET PO SCH (20:48)
[2019-12-23] MEDS: diphenhydrAMINE 25 MG CAPSULE PO PRN (20:48)
[2019-12-24] MEDS: traMADol 50 MG TABLET PO PRN ×2 (04:24→18:52)
[2019-12-24] MEDS: 0.9 % SODIUM CHLORIDE 10 ML SYRINGE IV SCH ×4 (04:24→20:09)
[2019-12-24 06:13] LABS: Hematocrit 30.3 % (34.1-44.9); Hemoglobin 10.2 g/dL (11.2-15.7); Mean Cell Volume 92.4 fL (80.0-100.0); Mean Corpuscular HGB Conc 33.7 g/dL (31.0-36.0); Mean Platelet Volume 10.9 fL (7.4-10.4); Platelet Count 255 K/mcL (140-440); RBC 3.28 M/mcL (3.59-5.38); Red Cell Distribution Width 13.2 % (11.5-14.5); WBC 13.6 K/mcL (4.50-11.00)
[2019-12-24 06:37] LABS: AST/SGOT 16 U/l (0-37); Bilirubin,Total 0.2 mg/dL (0.0-1.0); Blood Urea Nitrogen 22 mg/dl (8-23); Carbon Dioxide 21 mmol/L (22-30); Glucose 100 mg/dL (70-105); Phosphorous 2.9 mg/dL (2.7-4.5)
[2019-12-24 06:53] LABS: Chloride 110 mmol/L (96-108)
[2019-12-24] MEDS: IPRATROPIUM/ALBUTEROL 3 ML AMPUL.NEB NEB SCH (07:25)
[2019-12-24 07:37] LABS: Band Neutrophils % 8 % (0-10); Eosinophils % (Manual) 1 % (0-7); Lymphocytes % 10 % (15-49); Metamyelocytes % 2 % (0-0); Monocytes % (Manual) 5 % (1-12); Myelocytes % 5 % (0-0); Platelet Estimate NORMAL (NORMAL); RBC Morphology NORMAL (NORMAL); Segmented Neutrophils % 69 % (38-78)
[2019-12-24 07:39] LABS: ALT/SGPT 16 U/l (0-40); Albumin 2.8 gm/dL (3.2-5.2); Alkaline Phosphatase 38 U/L (39-117); Bilirubin,Direct < 0.2 mg/dL (0.0-0.3); Calcium 8.7 mg/dl (8.6-10.4); Globulin 2.9 gm/dL (2.2-3.7); Glomerular Filtration Rate 92; Lactate Dehydrogenase 189 U/L (94-250); Triglycerides 152 mg/dl (<150); Uric Acid 4.6 mg/dL (2.5-8.0)
[2019-12-24] MEDS: predniSONE 20 MG TABLET PO SCH (08:28)
[2019-12-24] MEDS: IPRATROPIUM/ALBUTEROL 3 ML AMPUL.NEB NEB PRN ×3 (09:06→19:59)
[2019-12-24] MEDS: OSELTAMIVIR PHOSPHATE 75 MG CAPSULE PO SCH ×2 (09:55→20:09)
[2019-12-24] MEDS: cefTRIAXone 2 GM in DEXTROSE 5% IN WATER 50 ML IV SCH (09:56)
[2019-12-24] MEDS: ENOXAPARIN 40 MG/0.4 ML SYRINGE SQ SCH (09:56)
--- NOTE | 2019-12-24 10:14 | Internal Med Progress Note ---
Medical - PN: Subj Patient information: Note initiated : 12/24/19 at 10:07 am Service Date, if different from initiated Date: [] Patient: Tessie Fuentes a 64 y/o F admitted on 12/21/19 for Flu symptoms. Chief Complaint: [] Interval history: Ms. Fuentes is a 64 year old F Who presents the ED for second time in 2 days for shortness of breath myalgias fevers headache. Patient's granddaughter who she sleeps with diagnosed with flu 4 days ago. Shortly thereafter patient started developing body aches fevers and chills headache and shortness of breath and some diarrhea. She came into the ED yesterday was given some treatment as well as a prescription for Tamiflu and prednisone. She went home however returns today because she feels like her shortness of breath and other symptoms are worsening. In the ER yesterday she did have a flu screen test which was negative however given the fact that her granddaughter who is sleeping with her head influenza positive test and patient has the typical symptoms she was treated with Tamiflu. And she has had 2 doses of it. She did have a leukocytosis yesterday which is mildly increased today although she is on prednisone. Her procalcitonin is quite elevated and her follow-up chest x-ray shows a new left upper lobe infiltrate. She does have a productive cough of yellow sputum. Lactate is okay. Per ER note she had a saturation of 88 to 91% on room air. 12/22 Much better today. Occasional cough. Shortness of breath still present but not as bad as yesterday. [place] feverish overnight. 12/23 Patient says she does not feel that great this morning had a poor night sleep with the alarm going off since she went to the mid 40s of her heart rate while sleeping although she was asymptomatic, it was sinus. She has her productive cough. Tired today. Rate currently 60-70s. 12/24 nurse reported HR 154-174 last night but this was artifact. Sinus bradycardia w hile asleep asymptomatic, nurse reported rate in 30's while sleeping. HR 50's EKG, sinus with occasional PVC. 12/25 Patient slept okay except for the alarms that kept waking up when her heart rate will drop. She did not feel anything. Per nurses they did put oxygen on her because when she was sleeping she would drop in the 80s. Patient still feels short of breath but better than when she came in. Coughing less. Has some chronic back pain. Review of Systems: denies headache/nausea/vomiting/chest or abdominal pain. Otherwise see above. - Constitutional Vitals: Vital Signs Temp Pulse Resp BP Pulse Ox 97.5 F 61 16 130/79 93 12/24/19 08:36 12/24/19 09:22 12/24/19 09:22 12/24/19 08:36 12/24/19 08:36 Period Temp Pulse Resp BP Sys/[place] Pulse Ox Last 24 Hr 97.5 F-99.3 F 41-77 15-22 113-133/59-79 90-96 Intake and Output 12/23/19 12/24/19 12/24/19 21:59 05:59 13:59 Intake Total 480 400 Output Total 400 300 500 Balance 80 100 -500 Weight 86.319 kg Intake & Output: Intake & Output 12/23/19 12/24/19 12/24/19 21:59 05:59 13:59 Intake Total 480 400 Output Total 400 300 500 Balance 80 100 -500 Weight 86.319 kg Intake: Oral 480 400 Output: Void Amount 400 300 Urine/Stool Mix 500 Other: Meal Dinner Percent of Meal Consumed 100% Feeding Ability Independent Urine Appearance Clear Clear Urine Color Bright Yellow Bright Yellow Urine Odor Normal Stool Size Moderate Stool Color Brown Stool Consistency Loose Exam: General: Alert, Awake, No acute Distress Eyes/N/T: EOMI, Head/Neck: neck supple, CV: RRR, No murmurs, Pulm: mild b/l exp wheezing, no rales Abd: soft, nontender, +BS x4 Ext: no clubbing/cyanosis/edema Neuro: Alert, no focal deficits, moves all extremities, Skin: warm/dry Medical - PN: Obj Da - Labs CBC & Chem 7: 12/24/19 05:10 12/24/19 05:10 Labs: Abnormal Lab Results 12/24/19 12/24/19 12/23/19 05:10 05:10 05:30 WBC 13.6 H RBC 3.28 L Hgb 10.2 L Hct 30.3 L MPV 10.9 H Gran % Lymph % (Auto) Gran # Lymph # (Auto) [place] # (Auto) Seg Neutrophils % Band Neutrophils % Lymphocytes % 10 L Metamyelocytes % 2 H Myelocytes % 5 H Chloride 110 H 110 H Carbon Dioxide 21 L Glucose 120 H Calcium 8.2 L Phosphorus 2.5 L Alkaline Phosphatase 38 L 32 L Total Protein 5.7 L 5.6 L Albumin 2.8 L 2.6 L Albumin/Globulin Ratio 0.9 L Triglycerides 152 H 153 H 12/23/19 12/22/19 12/22/19 05:30 05:25 05:25 WBC 13.3 H RBC 3.30 L Hgb 10.0 L Hct 30.7 L MPV 11.4 H Gran % Lymph % (Auto) Gran # Lymph # (Auto) [place] # (Auto) Seg Neutrophils % 82 H Band Neutrophils % 21 H Lymphocytes % 11 L 5 L Metamyelocytes % 1 H Myelocytes % 2 H Chloride 109 H Carbon Dioxide 19 L Glucose 192 H Calcium 8.3 L Phosphorus 1.9 L Alkaline Phosphatase 38 L Total Protein Albumin 2.8 L Albumin/Globulin Ratio 0.8 L Triglycerides 12/22/19 12/21/19 12/21/19 05:25 18:54 18:54 WBC 14.1 H 15.9 H RBC Hgb Hct MPV 11.1 H 11.1 H Gran % 86.1 H 87.3 H Lymph % (Auto) 8.2 L 5.9 L Gran # 12.12 H 13.88 H Lymph # (Auto) 1.15 L 0.93 L [place] # (Auto) 0.98 H Seg Neutrophils % Band Neutrophils % Lymphocytes % Metamyelocytes % Myelocytes % Chloride Carbon Dioxide Glucose 142 H Calcium Phosphorus Alkaline Phosphatase 36 L Total Protein Albumin Albumin/Globulin Ratio Triglycerides Meds: Medications Acetaminophen (Tylenol) 650 mg PO Q6HP PRN PRN Reason: PAIN/FEVER > 101 Albuterol/Ipratropium (Duoneb) 3 ml NEB Q4HP PRN PRN Reason: Shortness Of Breath Last Admin: 12/24/19 09:06 Dose: 3 ml Documented by: Citalopram Hydrobromide (Celexa) 40 mg PO DAILYP PRN PRN Reason: Pain Last Admin: 12/23/19 20:47 Dose: 40 mg Documented by: Diphenhydramine HCl (Benadryl) 25 mg PO HSP PRN PRN Reason: Insomnia Last Admin: 02/24/20 20:48 Dose: 25 mg Documented by: Enoxaparin Sodium (Lovenox) 40 mg SQ DAILY [facility] Last Admin: 12/24/19 09:56 Dose: 40 mg Documented by: Ceftriaxone Sodium 2 gm/ (Dextrose) 50 mls @ 100 mls/hr IV Q24H [facility]; Protocol Last Admin: 12/24/19 09:56 Dose: 100 mls/hr Documented by: Potassium Chloride 40 meq/ (Dextrose) 520 mls @ 130 mls/hr IV UD PRN PRN Reason: Potassium < 3 Magnesium Sulfate (Magnesium Sulfate) 2 gm in 50 mls @ 50 mls/hr IV UD PRN PRN Reason: Magnesium </= 1.6 Loperamide HCl (Imodium) 2 mg PO PRN PRN PRN Reason: Diarrhea Last Admin: 12/24/19 08:27 Dose: 2 mg Documented by: Melatonin (Melatonin 3mg Tablet) 3 mg PO QHS [facility] Last Admin: 12/23/19 20:48 Dose: Not Given Documented by: Ondansetron HCl (Zofran) 4 mg IV Q4HP PRN PRN Reason: Nausea And Vomiting Oseltamivir Phosphate (Tamiflu) 75 mg PO BID [facility] Last Admin: 12/24/19 09:55 Dose: 75 mg Documented by: Polyethylene Glycol (Miralax) 17 gm PO DAILYP PRN PRN Reason: Constipation Potassium Chloride (Kdur) 40 meq PO UD PRN PRN Reason: Potssium is 3-3.5 Last Admin: 12/24/19 09:55 Dose: 40 meq Documented by: Potassium Chloride (Kdur) 40 meq PO UD PRN PRN Reason: Potassium < 3 [facility]) [facility] Last Admin: 12/24/19 08:28 Dose: 40 mg Documented by: Fluticasone/Salmeterol (Advair 250-50 Diskus) 1 puff INH Q12 [facility] Last Admin: 12/23/19 20:48 Dose: Not Given Documented by: Senna (Senokot) 2 tab PO DAILYP PRN PRN Reason: Constipation Sodium Chloride (Saline Flush) 10 ml IV Q8 [facility] Last Admin: 12/24/19 09:57 Dose: 10 ml Documented by: Tramadol HCl (Ultram) 50 mg PO Q6HP PRN PRN Reason: pain Last Admin: 12/24/19 04:24 Dose: 50 mg Documented by: Medical - PN: A/P - Time Spent With Patient Total time spent is greater than 50% in coordination of care (as documented) at patient's floor/unit and/or counseling patient: - Narrative A/P Narrative: A: *Secondary bacterial infection ([place]) Streptococcus pneumoniae: -leukocytosis/elevated PCT improved -Leukocytosis bump from prednisone. BC neg *Influenza: empirically started treatment in ED given symptoms and close family member positive -although resp viral panel showed Human Metapneumovirus only *Acute hypoxic respiratory failure: 2/2 above -now on room air, but did drop last night to 80's while sleeping and was temporally put on oxygen overnight n *AECOPD(does not use home oxygen)/Bronchospams: *Depression: *Sinus Bradycardia while sleeping: appears to be asymptomatic P: -Rocephin, s/p azithro. MRSA screen neg -IS/Acapella -prednisone -CXR -nebs and home IH -IS/Acapella -Continue Tamiflu -monitor on tele, check TSH -ppx: Lovenox full Code
[2019-12-24] MEDS: FLUTICASONE/SALMETEROL 250/50 INHALER #14 INH SCH ×2 (10:40→20:10)
--- NOTE | 2019-12-24 11:35 | XRay Report ---
CLINICAL INFORMATION: Follow-up left upper lobe pneumonia COMPARISON: 12/21/2019 FINDINGS: Heart size, mediastinum and pulmonary vessels are normal. Moderate left upper lobe infiltrate is moderately better aerated on today's examination. The vague right upper lobe infiltrate, seen on previous study has cleared. Small bilateral pleural effusions appreciated IMPRESSION: Marked improved aeration left upper lobe pneumonia and complete resolution right upper lobe pneumonia Interpreted and Authenticated by: Jacinto Guzman 12/24/19
[2019-12-24] MEDS: diphenhydrAMINE 25 MG CAPSULE PO PRN (20:09)
[2019-12-24] MEDS: MELATONIN 3 MG TABLET PO SCH (20:09)
[2019-12-25] MEDS: cefTRIAXone 2 GM in DEXTROSE 5% IN WATER 50 ML IV SCH (08:30)
[2019-12-25] MEDS: 0.9 % SODIUM CHLORIDE 10 ML SYRINGE IV SCH (08:30)
[2019-12-25] MEDS: IPRATROPIUM/ALBUTEROL 3 ML AMPUL.NEB NEB PRN (08:32)
[2019-12-25] MEDS: OSELTAMIVIR PHOSPHATE 75 MG CAPSULE PO SCH (09:00)
[2019-12-25] MEDS: ENOXAPARIN 40 MG/0.4 ML SYRINGE SQ SCH (09:19)
[2019-12-25] MEDS: predniSONE 20 MG TABLET PO SCH (09:19)
[2019-12-25] MEDS: FLUTICASONE/SALMETEROL 250/50 INHALER #14 INH SCH (09:19)
== END 2019-12-25 12:13 | disposition home or self-care (01) | DRG 193 ==
LOC: ED 17:57 → ICU 22:45
PROVIDERS: ADMIT Internal Medicine; ATTEND Internal Medicine

== ENCOUNTER 2020-08-13 15:35 | Inpatient (IN) ==
[2020-08-13] MEDS ORDERED: DOXYCYCLINE 100 MG in DEXTROSE 5% IN WATER 100 ML IV ONE (15:59)
[2020-08-13] MEDS ORDERED: IPRATROPIUM/ALBUTEROL 3 ML AMPUL.NEB NEB ONE (15:59)
--- NOTE | 2020-08-13 16:03 | Emergency Department Note ---
SOB HPI General Chief Complaint: Shortness of Breath/Dyspnea Stated Complaint: SOB Time Seen by Provider: 08/13/20 15:51 Source: patient and RN notes reviewed Mode of arrival: ambulatory Limitations: no limitations History of Present Illness HPI Narrative: Narrative: This patient has had cough productive of green phlegm and feels like she has a recurrence of pneumonia that she has had in the past. She does have some discomfort in the left side of her chest. She presented first to [facility] and they did a Covid swab. She does have COPD and has been wheezing. He does feel short of breath. sHe has a low-grade fever and her O2 saturation was 90% on room air. Complaint: shortness of breath, cough and chest pain Onset (ago): day(s) Context: recent illness Severity: moderate Consistency/Duration: constant Improves with: bronchodilators Worsens with: nothing Known history of: COPD and recurrent pneumonia Associated symptoms: Reports chest pain, fever, cough and sputum production Related Data Previous Rx's Medication Instructions Recorded albuterol sulfate 2 puff INH Q4-6HP PRN #1 inhaler 12/21/19 ipratropium 20 mcg-albuterol 100 1 puff INHALATION Q6H PRN #4 g 05/20/20 mcg/actuation mist for inhalation celecoxib 100 mg capsule 100 mg PO BID 30 Days #60 cap 06/19/20 fluticasone 250 mcg-salmeterol 50 1 inh INHALATION Q12H #180 each 07/08/20 mcg/dose blistr powdr for inhalation citalopram 40 mg tablet 40 mg PO QDAY #90 tab 07/22/20 tramadol 50 mg tablet 50 mg PO Q6H PRN #100 tab 07/22/20 doxycycline hyclate 100 mg PO BID #14 tab 08/13/20 Allergies Allergy/AdvReac Type Severity Reaction Status Date / Time No Known Drug Allergies Allergy Unknown Unknown Verified 08/13/20 15:36 Review of Systems ROS ROS Narrative: Narrative: All systems ED: reviewed and negative except as stated. Constitutional: Reports fever and chills ENT ED: Denies throat pain Cardiovascular: Reports chest pain Respiratory: Reports shortness of breath, cough and phlegm Gastrointestinal: Denies abdominal pain and nausea PFSH Narrative Patient History Narrative: Narrative: Medical/Surgical/Family History All Active Problems (Updated 08/13/20 @ 20:01 by Malcolm Harden MD) Acute and chronic respiratory failure with hypoxia (Acute) Need for hepatitis C screening test (Acute) Pneumonia (Acute) Acute exacerbation of chronic obstructive airways disease (Acute) Influenza (Acute) Chest pain at rest (Chronic) Superficial injury of gum with infection (Acute) Thrush, oral (Acute) Hx of fusion of cervical spine (Acute) History of dental surgery (Acute) History of carpal tunnel repair (Acute) Yeast infection (Acute 03/09/15) Urinary incontinence (Acute 03/09/15) History of tobacco use (Acute) Acute sinusitis (Acute 03/09/15) Reactive airway disease (Acute) Joint pain (Acute 03/09/15) Degeneration of lumbar intervertebral disc (Acute) Chronic obstructive pulmonary disease (Acute) Medical History (Updated 08/13/20 @ 20:01 by Malcolm Harden MD) Acute sinusitis (Acute 03/09/15) Chest pain at rest (Chronic) Chronic obstructive pulmonary disease (Acute) Degeneration of lumbar intervertebral disc (Acute) History of tobacco use (Acute) 11/29/2012-Quite smoking 4 months ago Joint pain (Acute 03/09/15) Multiple Sites Need for hepatitis C screening test (Acute) Pneumonia (Acute) Reactive airway disease (Acute) Superficial injury of gum with infection (Acute) Thrush, oral (Acute) Urinary incontinence (Acute 03/09/15) Yeast infection (Acute 03/09/15) Surgical History History of carpal tunnel repair (Acute) History of dental surgery (Acute) Periodontal Hx of fusion of cervical spine (Acute) Family History Father Leukemia Social History Smoking Status: Former smoker Alcohol Intake Frequency: holiday/special occasion only Substance Use: does not use Exam Narrative Narrative: Narrative: General Limitations: no limitations Head Head: Present atraumatic, normocephalic and normal inspection Eye Eye: Present normal appearance and EOMI; Absent scleral icterus and conjunctival injection ENT ENT: Present normal exam, normal oropharynx and mucous membranes moist Neck Neck: Present normal inspection and full ROM Chest Chest: Present normal inspection and symmetric chest wall rise Respiratory Respiratory: Present rales/crackles (Left lung field) Cardiovascular Cardiovascular: Present regular rate, normal rhythm and normal heart sounds Adbominal Abdominal: Present soft; Absent distention and tenderness Extremities Extremities: Present normal inspection and full ROM; Absent pedal edema and pretibial edema Neurological Neurological: Present alert Psychiatric Psychiatric: Present normal affect Skin Skin: Present warm (WNL) and dry; Absent diaphoresis Course Vital Signs Vital signs: Vital Signs Temperature 100.8 F H 08/13/20 15:36 Pulse Rate 94 H 08/13/20 15:36 Respiratory Rate 20 08/13/20 15:36 Blood Pressure 120/63 08/13/20 15:36 Pulse Oximetry (%) 90 08/13/20 15:36 Temperature 100.8 F H 08/13/20 15:36 Pulse Rate 81 08/13/20 19:31 Respiratory Rate 23 H 08/13/20 19:31 Blood Pressure 106/64 08/13/20 19:31 Pulse Oximetry (%) 94 08/13/20 19:31 MDM MDM Narrative Medical decision making narrative: Narrative: Patient was given IV doxycycline and actually feels quite well at discharge. Lab Data Lab results reviewed: Yes I reviewed the patient's lab results. Lab results narrative: 17.9 but lactic acid was normal Result diagrams: 08/13/20 16:30 08/13/20 16:30 Labs: Lab Results 08/13/20 08/13/20 08/13/20 Range/Units 16:30 16:30 16:30 WBC 17.9 H (4.5-11.0) K/mcL RBC 3.51 L (4.00-5.20) M/mcL Hgb 10.8 L (12.0-15.0) g/dL Hct 32.4 L (36.0-48.0) % MCV 92.3 (80.0-100.0) fL MCH 30.8 (26.0-34.0) pg MCHC 33.3 (31.0-36.0) g/dL RDW 12.7 (11.5-14.5) % Plt Count 307 (140-440) K/mcL MPV 10.6 H (7.4-10.4) fL Neut % (Auto) 83.6 H (38.0-78.0) % Lymph % (Auto) 7.8 L (15.0-49.0) % [place] % (Auto) 7.5 (1.0-12.0) % Eos % (Auto) 0.7 (0.0-7.0) % Baso % (Auto) 0.4 (0.0-2.0) % Lymph # (Auto) 1.39 L (1.50-4.80) K/mcL [place] # (Auto) 1.35 H (0.10-0.90) K/mcL Eos # (Auto) 0.13 (0.00-0.70) K/mcL Baso # (Auto) 0.07 (0.00-0.20) K/mcL Absolute Neutrophils 14.98 H (1.80-8.00) K/mcL VBG Lactic Acid 0.7 (0.5-2.0) mmol/L Sodium 136 (133-145) mmol/L Potassium 4.1 (3.3-5.1) mmol/L Chloride 102 (96-108) mmol/L Carbon Dioxide 24 (22-30) mmol/L Anion Gap 10.0 (8.0-16.0) BUN 17 (8-23) mg/dL Creatinine 1.1 (0.6-1.1) mg/dL GFR Calculation 53 Glucose 115 H (70-105) mg/dL Calcium 9.0 (8.6-10.4) mg/dL Total Bilirubin 0.4 (0.1-1.0) mg/dL AST 16 (<32) U/L ALT 15 (<40) U/L Alkaline Phosphatase 63 (39-117) U/L Total Protein 6.4 (5.9-8.4) gm/dL Albumin 3.3 (3.2-5.2) gm/dL Globulin 3.1 (2.2-3.7) gm/dL Albumin/Globulin Ratio 1.1 (1.0-2.3) Radiology Data Radiology results reviewed: Yes I reviewed the patient's radiology results. Radiology results narrative: Chest x-ray is suggestive of bibasilar infiltrates Discharge Plan Patient/Caregiver Discharge Instructions Pt seen by CEMETERY WARDEN/PA only: No Clinical Impression: Pneumonia Qualifiers: Pneumonia type: due to unspecified organism Laterality: bilateral Lung location: lower lobe of lung Qualified Code(s): J18.9 - Pneumonia, unspecified organism Instructions: Community Acquired Pneumonia (ED) Patient Disposition: Home, Self-Care Follow up with: Pilo Ramon MD [Primary Care Provider] - Prescriptions: New doxycycline hyclate 100 mg tablet 100 mg PO BID Qty: 14 RF: 0 No Action Combivent Respimat 20-100 mcg/actuation mist 1 puff INHALATION Q6H PRN (Reason: shortness of breath) Qty: 4 RF: 5 celecoxib [Celebrex] 100 mg capsule 100 mg PO BID 30 Days Qty: 60 RF: 0 Advair Diskus 250-50 mcg/dose blister with device 1 inh INHALATION Q12H Qty: 180 RF: 1 citalopram [Celexa] 40 mg tablet 40 mg PO QDAY Qty: 90 RF: 1 tramadol [Ultram] 50 mg tablet 50 mg PO Q6H PRN (Reason: pain) Qty: 100 RF: 0 albuterol sulfate 1 PUFF inhaler 2 puff INH Q4-6HP PRN (Reason: Wheezing) Qty: 1 RF: 0
--- NOTE | 2020-08-13 16:30 | XRay Report ---
CLINICAL INFORMATION: sob COMPARISON: 12/24/2019 FINDINGS: Heart size, mediastinum and pulmonary vessels are normal. Small vague infiltrate developing in the right base. Possible vague infiltrate in the left base. No effusions IMPRESSION: Developing bibasilar infiltrates. Interpreted and Authenticated by: Jacinto Guzman 08/13/20
[2020-08-13] MEDS: LACTATED RINGERS 1,000 ML IV SCH ×2 (16:34→22:19)
[2020-08-13 17:25] LABS: Basophils # (Auto) 0.07 K/mcL (0.00-0.20); Basophils % (Auto) 0.4 % (0.0-2.0); Eosinophils # (Auto) 0.13 K/mcL (0.00-0.70); Eosinophils % (Auto) 0.7 % (0.0-7.0); Hematocrit 32.4 % (36.0-48.0); Hemoglobin 10.8 g/dL (12.0-15.0); Lymphocytes # (Auto) 1.39 K/mcL (1.50-4.80); Lymphocytes % (Auto) 7.8 % (15.0-49.0); Mean Cell Volume 92.3 fL (80.0-100.0); Mean Corpuscular HGB Conc 33.3 g/dL (31.0-36.0); Mean Platelet Volume 10.6 fL (7.4-10.4); Monocytes # (Auto) 1.35 K/mcL (0.10-0.90); Monocytes % (Auto) 7.5 % (1.0-12.0); Neutrophils % (Auto) 83.6 % (38.0-78.0); Platelet Count 307 K/mcL (140-440); RBC 3.51 M/mcL (4.00-5.20); Red Cell Distribution Width 12.7 % (11.5-14.5); WBC 17.9 K/mcL (4.5-11.0)
[2020-08-13 19:42] LABS: ALT/SGPT 15 U/L (<40); AST/SGOT 16 U/L (<32); Albumin 3.3 gm/dL (3.2-5.2); Albumin/Globulin Ratio 1.1 (1.0-2.3); Alkaline Phosphatase 63 U/L (39-117); Bilirubin,Total 0.4 mg/dL (0.1-1.0); Blood Urea Nitrogen 17 mg/dL (8-23); Carbon Dioxide 24 mmol/L (22-30); Chloride 102 mmol/L (96-108); Globulin 3.1 gm/dL (2.2-3.7); Glomerular Filtration Rate 53; Glucose 115 mg/dL (70-105)
[2020-08-13] MEDS ORDERED: ACETAMINOPHEN 325 MG TABLET PO ONE (20:04)
[2020-08-13] MEDS ORDERED: cefTRIAXone 1 GM VIAL IV ONE (20:29)
[2020-08-13] MEDS ORDERED: AZITHROMYCIN 500 MG in DEXTROSE 5% IN WATER 250 ML IV ONE (20:29)
--- NOTE | 2020-08-13 20:36 | Internal Med History&Physical ---
HPI History of Present Illness Patient information: Note initiated : 08/13/20 at 8:36 pm Service Date, if different from initiated Date: [] Patient: Tessie Fuentes a 65 y/o F admitted on for Shortness of breath. Chief Complaint: Shortness of breath History of present illness: Ms. Fuentes is a 65 year old F non-ST smoking/COPD who was hospitalized earlier this year with bacterial pneumonia and COPD exacerbation, she was in her baseline state of health until 1 week prior to presentation started noticing increasing cough productive sputum with purulence. Symptoms worsen with increasing dyspnea at rest along with fever that got patient concerned about developing pneumonia. She presents to the ER for evaluation Initial work-up was consistent with fever of 100.8, white count 18,000, chest infiltrates on imaging. Patient was started on antibiotic coverage after cultures were drawn along bronchodilators. Hospitalist service was consulted. Covid 19 test was sent out At the time of my evaluation patient is fairly anxious. She endorses that she delayed coming to the hospital due to financial reasons and prior hospital bills that she has been unable to pay. However she endorses to symptoms as above but denies weight loss/bloody stool/headache or photophobia. She further denies nausea vomiting but endorses loss of appetite but denies loss of taste or's smell Review of systems A 10 point review system was performed and is negative except for ones discussed above PFSH PFSH All Active Problems (Updated 08/13/20 @ 20:01 by Malcolm Harden MD) Acute and chronic respiratory failure with hypoxia (Acute) Need for hepatitis C screening test (Acute) Pneumonia (Acute) Acute exacerbation of chronic obstructive airways disease (Acute) Influenza (Acute) Chest pain at rest (Chronic) Superficial injury of gum with infection (Acute) Thrush, oral (Acute) Hx of fusion of cervical spine (Acute) History of dental surgery (Acute) History of carpal tunnel repair (Acute) Yeast infection (Acute 03/09/15) Urinary incontinence (Acute 03/09/15) History of tobacco use (Acute) Acute sinusitis (Acute 03/09/15) Reactive airway disease (Acute) Joint pain (Acute 03/09/15) Degeneration of lumbar intervertebral disc (Acute) Chronic obstructive pulmonary disease (Acute) Medical History (Updated 08/13/20 @ 20:01 by Malcolm Harden MD) Acute sinusitis (Acute 03/09/15) Chest pain at rest (Chronic) Chronic obstructive pulmonary disease (Acute) Degeneration of lumbar intervertebral disc (Acute) History of tobacco use (Acute) 11/29/2012-Quite smoking 4 months ago Joint pain (Acute 03/09/15) Multiple Sites Need for hepatitis C screening test (Acute) Pneumonia (Acute) Reactive airway disease (Acute) Superficial injury of gum with infection (Acute) Thrush, oral (Acute) Urinary incontinence (Acute 03/09/15) Yeast infection (Acute 03/09/15) Surgical History History of carpal tunnel repair (Acute) History of dental surgery (Acute) Periodontal Hx of fusion of cervical spine (Acute) Family History Father Leukemia Social History household members: friend(s) marital status: education level: high school service: No occupational 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 [employer] pets and animals: Yes (1 puppy) pets and animals: dog(s) other: Significant other physical activity: walking and swimming frequency: 5-6 times per week duration: 30-45 minutes/day smoking status: Former smoker alcohol intake frequency: holiday/special occasion only substance use type: does not use MEDS/ALLERGIES Home Medications and Allergies Home Medications Medication Instructions Recorded Confirmed Type albuterol sulfate 2 puff INH Q4-6HP PRN #1 inhaler 12/21/19 08/13/20 Rx ipratropium 20 mcg-albuterol 100 1 puff INHALATION Q6H PRN #4 g 05/20/20 0 Rx mcg/actuation mist for inhalation celecoxib 100 mg capsule 100 mg PO BID 30 Days #60 cap 06/19/20 08/13/20 Rx fluticasone 250 mcg-salmeterol 50 1 inh INHALATION Q12H #180 each 07/08/20 1 Rx mcg/dose blistr powdr for inhalation citalopram 40 mg tablet 40 mg PO QDAY #90 tab 07/22/20 08/13/20 Rx tramadol 50 mg tablet 50 mg PO Q6H PRN #100 tab 07/22/20 08/13/20 Rx Allergies Allergy/AdvReac Type Severity Reaction Status Date / Time No Known Drug Allergies Allergy Unknown Unknown Verified 08/13/20 15:36 EXAM Constitutional Vitals: Temp Pulse Resp BP Pulse Ox 101.4 F H 81 23 H 106/64 94 08/13/20 20:21 08/13/20 19:31 08/13/20 19:31 08/13/20 19:31 08/13/20 19:31 Anxious Head normocephalic Oral cavity moist No ear nose discharge Eye movement symmetrical Neck supple no lymphadenopathy S1-S2 tachycardia Labored rapid breathing with rhonchi Nondistended nontender abdomen Lower extremity no cyanosis clubbing or joint swelling Skin no suspicious lesion Psych no hallucination delusion Neuro normal higher function DATA Data Completed and Pending Labs: Labs from last 24 hours 08/13/20 08/13/20 08/13/20 16:30 16:30 16:30 WBC 17.9 H RBC 3.51 L Hgb 10.8 L Hct 32.4 L MCV 92.3 MCH 30.8 MCHC 33.3 RDW 12.7 Plt Count 307 MPV 10.6 H Neut % (Auto) 83.6 H Lymph % (Auto) 7.8 L [place] % (Auto) 7.5 Eos % (Auto) 0.7 Baso % (Auto) 0.4 Lymph # (Auto) 1.39 L [place] # (Auto) 1.35 H Eos # (Auto) 0.13 Baso # (Auto) 0.07 Absolute Neutrophils 14.98 H VBG Lactic Acid 0.7 Sodium 136 Potassium 4.1 Chloride 102 Carbon Dioxide 24 Anion Gap 10.0 BUN 17 Creatinine 1.1 GFR Calculation 53 Glucose 115 H Calcium 9.0 Total Bilirubin 0.4 AST 16 ALT 15 Alkaline Phosphatase 63 Total Protein 6.4 Albumin 3.3 Globulin 3.1 Albumin/Globulin Ratio 1.1 A/P Narrative A/P Narrative: * Bilateral PNA-likely Covid pneumonia with superimposed bacterial pneumonia. Continue antibiotic coverage/await Covid test. * Sepsis-secondary to above. Continue antibiotic coverage. White count 18,000. * Acute exacerbation of COPD secondary to above continue steroids and bronchodilators * Acute hypoxic respiratory failure secondary to above. Continue supplemental oxygen and wean as tolerated * Full code * Prophylaxis heparin Plan * Inpatient admission * Broad antibiotic coverage * COVID-19 testing/precautions * Supplemental oxygen/steroids and bronchodilators * PT OT nutrition support * Discharge planning Time Spent With Patient Time: Total time spent is greater than 50% in coordination of care (as documented) at patient's floor/unit and/or counseling patient:
[2020-08-13] MEDS ORDERED: POTASSIUM CHLORIDE 40 MEQ in DEXTROSE 5% IN WATER 500 ML IV PRN (22:08)
[2020-08-13] MEDS ORDERED: ONDANSETRON 4 MG/2 ML VIAL IV PRN (22:08)
[2020-08-13] MEDS ORDERED: AZITHROMYCIN 500 MG in DEXTROSE 5% IN WATER 250 ML IV SCH (22:08)
[2020-08-13] MEDS ORDERED: MAGNESIUM SULFATE 2 GM/50 ML BAG IV PRN (22:08)
[2020-08-13] MEDS ORDERED: cefTRIAXone 2 GM in DEXTROSE 5% IN WATER 50 ML IV SCH (22:08)
[2020-08-13] MEDS ORDERED: BISACODYL 10 MG SUPP.RECT PR PRN (22:08)
[2020-08-13] MEDS ORDERED: POLYETHYLENE GLYCOL 3350 17 GM PACKET PO PRN (22:08)
[2020-08-13] MEDS ORDERED: ACETAMINOPHEN 650 MG/65 ML BOTTLE IV PRN (22:08)
[2020-08-13] MEDS ORDERED: POTASSIUM CHLORIDE 20 MEQ PACKET PO PRN (22:08)
[2020-08-13] MEDS: 0.9 % SODIUM CHLORIDE 1,000 ML IV SCH (22:15)
[2020-08-13] MEDS: 0.9 % SODIUM CHLORIDE 10 ML SYRINGE IV SCH (23:04)
[2020-08-13] MEDS: SENNOSIDES/DOCUSATE SODIUM 1 TAB TABLET PO SCH (23:14)
[2020-08-13] MEDS: DOCUSATE SODIUM 100 MG CAPSULE PO SCH (23:14)
[2020-08-13] MEDS: MELATONIN 3 MG TABLET PO PRN (23:14)
[2020-08-13] MEDS: HEPARIN 5,000 UNIT/ML VIAL SQ SCH (23:14)
[2020-08-13] MEDS: methylPREDNISolone SOD SUCC 125 MG/2 ML VIAL IV SCH (23:15)
[2020-08-13] MEDS: BUDESONIDE 1 PUFF INHALER INH SCH (23:24)
[2020-08-14] MEDS: 0.9 % SODIUM CHLORIDE 10 ML SYRINGE IV SCH ×3 (04:21→22:00)
[2020-08-14] MEDS ORDERED: TIOTROPIUM BROMIDE 18 MCG INHALANT INH SCH (09:00)
[2020-08-14] MEDS: DOCUSATE SODIUM 100 MG CAPSULE PO SCH ×2 (09:07→20:43)
[2020-08-14] MEDS: HEPARIN 5,000 UNIT/ML VIAL SQ SCH ×2 (09:07→20:44)
[2020-08-14] MEDS: methylPREDNISolone SOD SUCC 125 MG/2 ML VIAL IV SCH ×2 (09:10→20:43)
[2020-08-14 09:29] LABS: Band Neutrophils % 2 % (0-10); Hematocrit 32.4 % (36.0-48.0); Hemoglobin 10.7 g/dL (12.0-15.0); Lymphocytes % 7 % (15-49); Mean Cell Volume 92.6 fL (80.0-100.0); Mean Platelet Volume 10.3 fL (7.4-10.4); Monocytes % (Manual) 6 % (1-12); Platelet Count 326 K/mcL (140-440); Platelet Estimate NORMAL (Normal); RBC Morphology NORMAL (Normal); Red Cell Distribution Width 12.7 % (11.5-14.5); Segmented Neutrophils % 85 % (38-78); WBC 18.6 K/mcL (4.5-11.0)
--- NOTE | 2020-08-14 10:08 | Internal Med Progress Note ---
SUBJECTIVE Subjective Patient information: Note initiated : 08/14/20 at 10:05 am Service Date, if different from initiated Date: [] Patient: Tessie Fuentes a 65 y/o F admitted on 08/13/20 for Shortness of breath. Chief Complaint: History of present illness: Ms. Fuentes is a 65 year old F non-ST smoking/COPD who was hospitalized earlier this year with bacterial pneumonia and COPD exacerbation, she was in her baseline state of health until 1 week prior to presentation started noticing increasing cough productive sputum with purulence. Symptoms worsen with increasing dyspnea at rest along with fever that got patient concerned about developing pneumonia. She presents to the ER for evaluation Initial work-up was consistent with fever of 100.8, white count 18,000, chest infiltrates on imaging. Patient was started on antibiotic coverage after cultures were drawn along bronchodilators. Hospitalist service was consulted. Covid 19 test was sent out At the time of my evaluation patient is fairly anxious. She endorses that she delayed coming to the hospital due to financial reasons and prior hospital bills that she has been unable to pay. However she endorses to symptoms as above but denies weight loss/bloody stool/headache or photophobia. She further denies nausea vomiting but endorses loss of appetite but denies loss of taste or's smell 08/14-patient seen in room. No overnight events. No concerns per staff. On 2 L oxygen. White count 18.6. Anxious and tearful. COVID-19 test pending. Cultures negative so far. On antibiotic coverage. However feels better since a dmission. Constitutional Vitals: Vital Signs Temp Pulse Resp BP Pulse Ox 97.8 F 78 18 98/71 93 08/14/20 05:45 08/14/20 05:45 08/14/20 05:45 08/14/20 05:45 08/14/20 05:45 Period Temp Pulse Resp BP Sys/Cortez Pulse Ox Last 24 Hr 97.8 F-101.4 F 69-94 16-26 90-120/55-74 90-96 Intake and Output 08/13/20 08/14/20 08/14/20 21:59 05:59 13:59 Intake Total 1100 690 Output Total 1800 Balance 1100 -1110 Weight 89.358 kg 88.133 kg nonlabored breathing alert but anxious Nondistended abdomen Intake & Output: Intake & Output 10/15/20 10/16/20 10/16/20 21:59 05:59 13:59 Intake Total 1100 690 Output Total 1800 Balance 1100 -1110 Weight 89.358 kg 88.133 kg Intake: IV 1100 250 Zithromax 500 mg In Dextrose 5% 250 in Water 250 ml @ 250 mls/hr [facility] Rx#:[id number] Vibramycin 100 mg In Dextrose 5 100 % in Water 100 ml @ 100 mls/hr [facility] Rx#:[id number] Lactated Ringers 1,000 ml @ 250 1000 mls/hr IV .Q4H [facility] Rx#: [id number] Oral 440 Output: Void Amount 1800 Other: Meal Dinner Percent of Meal Consumed 100% Feeding Ability Independent Urine Appearance Clear Urine Color Bright Yellow Urine Odor Normal OBJ DATA Labs CBC & Chem 7: 08/14/20 05:44 08/13/20 16:30 Labs: Abnormal Lab Results 08/14/20 08/13/20 08/13/20 05:44 16:30 16:30 WBC 18.6 H 17.9 H RBC 3.50 L 3.51 L Hgb 10.7 L 10.8 L Hct 32.4 L 32.4 L MPV 10.6 H Neut % (Auto) 83.6 H Lymph % (Auto) 7.8 L Lymph # (Auto) 1.39 L [place] # (Auto) 1.35 H Seg Neutrophils % 85 H Lymphocytes % 7 L Absolute Neutrophils 14.98 H Glucose 115 H Meds: Medications Acetaminophen (Tylenol) 650 mg PO Q4-6HP PRN; Protocol PRN Reason: Per Pain Protocol/Fever > 101 Bisacodyl (Dulcolax) [address] Q2-3DAYS PRN PRN Reason: Constipation Budesonide (Pulmicort) 2 puff INH BID [facility] Last Admin: 08/13/20 23:24 Dose: Not Given Documented by: Docusate Sodium (Colace) 100 mg PO BID [facility] Last Admin: 08/14/20 09:07 Dose: Not Given Documented by: Heparin Sodium (Porcine) (Heparin) 5,000 unit SQ Q12 [facility] Last Admin: 08/14/20 09:07 Dose: 5,000 unit Documented by: Potassium Chloride 40 meq/ (Dextrose) 520 mls @ 130 mls/hr IV UD PRN PRN Reason: K+ = or < 3.5 Acetaminophen (Ofirmev) 650 mg in 65 mls @ 130 mls/hr IV Q6HP PRN; Protocol PRN Reason: Per Pain Protocol/Fever > 101 Magnesium Sulfate (Magnesium Sulfate) 2 gm in 50 mls @ 50 mls/hr IV UD PRN PRN Reason: MG = or < 1.7 Sodium Chloride (Sodium Chloride 0.9%) 1,000 mls @ 50 mls/hr IV .Q20H [facility] Stop: 08/16/20 10:07 Last Admin: 08/13/20 22:15 Dose: 50 mls/hr Documented by: Azithromycin 500 mg/ Dextrose 250 mls @ 250 mls/hr IV DAILY [facility]; Protocol Stop: 08/15/20 09:59 Ceftriaxone Sodium 2 gm/ (Dextrose) 50 mls @ 100 mls/hr IV DAILY [facility]; Protocol Melatonin (Melatonin 3mg Tablet) 3 mg PO HSP PRN PRN Reason: Insomnia Last Admin: 08/13/20 23:14 Dose: 3 mg Documented by: Methylprednisolone Sodium Succinate (Solu-Medrol) 60 mg IV Q12 [facility] Last Admin: 08/14/20 09:10 Dose: 60 mg Documented by: Ondansetron HCl (Zofran Odt) 4 mg SL Q4-6HP PRN; Protocol PRN Reason: Nausea And Vomiting Ondansetron HCl (Zofran) 4 mg IV Q4-6HP PRN; Protocol PRN Reason: Nausea And Vomiting Polyethylene Glycol (Miralax) 17 gm PO DAILYP PRN PRN Reason: Constipation Potassium Chloride (Klor-Con) 40 meq PO DAILYP PRN PRN Reason: K+ < 3.5 Senna/Docusate Sodium (Senna Plus Tablet) 1 tab PO HS [facility] Last Admin: 08/13/20 23:14 Dose: 1 tab Documented by: Sodium Chloride (Saline Flush) 10 ml IV Q8 [facility] Last Admin: 08/14/20 04:21 Dose: Not Given Documented by: Tiotropium Agra (Spiriva) 18 mcg INH DAILY [facility] A/P Narrative A/P Narrative: * Bilateral PNA-likely Covid pneumonia with superimposed bacterial pneumonia. Continue antibiotic coverage/await Covid test. Initiate remdesivir if Covid 19+ * Sepsis-secondary to above. Continue antibiotic coverage. White count 18,000. * Acute exacerbation of COPD secondary to above continue steroids and bronc hodilators * Acute hypoxic respiratory failure secondary to above. Continue supplemental oxygen and wean as tolerated * Full code * Prophylaxis heparin Plan * Continue antibiotic coverage and de-escalate based on cultures * Await COVID-19 testing/continue precautions * Wean oxygen as tolerated * steroids bronchodilators * Start remdesivir if Covid positive * PT OT nutrition support * Discharge planning Time Spent With Patient Time: Total time spent is greater than 50% in coordination of care (as documented) at patient's floor/unit and/or counseling patient: QUALITY Stroke Symptom Onset Unknown: No VTE Deep Vein Thrombosis/Pulmonary Embolism Present on Admission: No
[2020-08-14 10:29] LABS: ALT/SGPT 13 U/L (<40); AST/SGOT 12 U/L (<32); Albumin 3.1 gm/dL (3.2-5.2); Albumin/Globulin Ratio 0.9 (1.0-2.3); Alkaline Phosphatase 64 U/L (39-117); Bilirubin,Direct < 0.2 mg/dL (<0.3); Bilirubin,Total 0.3 mg/dL (0.1-1.0); Blood Urea Nitrogen 15 mg/dL (8-23); Calcium 9.3 mg/dL (8.6-10.4); Carbon Dioxide 24 mmol/L (22-30); Chloride 103 mmol/L (96-108); Globulin 3.4 gm/dL (2.2-3.7); Glomerular Filtration Rate 77; Glucose 176 mg/dL (70-105); Lactate Dehydrogenase 148 U/L (135-225); Phosphorous 3.8 mg/dL (2.5-4.5); Triglycerides 111 mg/dL (<150); Uric Acid 4.5 mg/dL (2.5-8.0)
[2020-08-14] MEDS: cefTRIAXone 2 GM in DEXTROSE 5% IN WATER 50 ML IV SCH (11:33)
[2020-08-14] MEDS: BUDESONIDE 1 PUFF INHALER INH SCH (11:40)
[2020-08-14] MEDS ORDERED: ALBUTEROL SULFATE 200 PUFF INHALER INH PRN (12:27)
[2020-08-14] MEDS: AZITHROMYCIN 500 MG in DEXTROSE 5% IN WATER 250 ML IV SCH (13:40)
[2020-08-14] MEDS: FLUTICASONE/SALMETEROL 250/50 INHALER #14 INH SCH (13:52)
[2020-08-14] MEDS: ACETAMINOPHEN 325 MG TABLET PO PRN (16:59)
[2020-08-14] MEDS: IPRATROPIUM/ALBUTEROL SULFATE 1 PUFF INHALER INH PRN (19:00)
[2020-08-14] MEDS: 0.9 % SODIUM CHLORIDE 1,000 ML IV SCH (20:40)
[2020-08-14] MEDS: traMADol 50 MG TABLET PO PRN (20:41)
[2020-08-14] MEDS: SENNOSIDES/DOCUSATE SODIUM 1 TAB TABLET PO SCH (20:43)
[2020-08-14] MEDS: CELECOXIB 100 MG CAPSULE PO SCH (20:45)
[2020-08-14] MEDS: MELATONIN 3 MG TABLET PO PRN (22:00)
[2020-08-15] MEDS: FLUTICASONE/SALMETEROL 250/50 INHALER #14 INH SCH ×3 (02:27→13:14)
[2020-08-15] MEDS: ONDANSETRON 4 MG ODT TABLET SL PRN ×2 (02:36→15:05)
[2020-08-15] MEDS: IPRATROPIUM/ALBUTEROL SULFATE 1 PUFF INHALER INH PRN (02:38)
[2020-08-15] MEDS: 0.9 % SODIUM CHLORIDE 10 ML SYRINGE IV SCH ×3 (05:59→21:00)
[2020-08-15 07:54] LABS: ALT/SGPT 12 U/L (<40); AST/SGOT 12 U/L (<32); Albumin 2.8 gm/dL (3.2-5.2); Albumin/Globulin Ratio 0.9 (1.0-2.3); Alkaline Phosphatase 64 U/L (39-117); Bilirubin,Direct < 0.2 mg/dL (<0.3); Bilirubin,Total < 0.2 mg/dL (0.1-1.0); Blood Urea Nitrogen 22 mg/dL (8-23); Calcium 9.1 mg/dL (8.6-10.4); Carbon Dioxide 21 mmol/L (22-30); Chloride 104 mmol/L (96-108); Globulin 3.2 gm/dL (2.2-3.7); Glomerular Filtration Rate 91; Glucose 214 mg/dL (70-105); Lactate Dehydrogenase 143 U/L (135-225); Phosphorous 3.8 mg/dL (2.5-4.5); Triglycerides 176 mg/dL (<150)
[2020-08-15 08:42] LABS: Band Neutrophils % 7 % (0-10); Hematocrit 28.7 % (36.0-48.0); Hemoglobin 9.4 g/dL (12.0-15.0); Lymphocytes % 8 % (15-49); Mean Cell Volume 93.5 fL (80.0-100.0); Mean Corpuscular HGB Conc 32.8 g/dL (31.0-36.0); Mean Platelet Volume 10.4 fL (7.4-10.4); Monocytes % (Manual) 4 % (1-12); Platelet Count 341 K/mcL (140-440); Platelet Estimate NORMAL (Normal); RBC 3.07 M/mcL (4.00-5.20); RBC Morphology NORMAL (Normal); Red Cell Distribution Width 13.1 % (11.5-14.5); Segmented Neutrophils % 81 % (38-78); WBC 18.5 K/mcL (4.5-11.0)
[2020-08-15] MEDS: ACETAMINOPHEN 325 MG TABLET PO PRN ×2 (08:59→19:20)
[2020-08-15] MEDS: CITALOPRAM 20 MG TABLET PO SCH (09:00)
[2020-08-15] MEDS: HEPARIN 5,000 UNIT/ML VIAL SQ SCH ×2 (09:00→21:00)
[2020-08-15] MEDS: DOCUSATE SODIUM 100 MG CAPSULE PO SCH ×2 (09:00→20:59)
[2020-08-15] MEDS: cefTRIAXone 2 GM in DEXTROSE 5% IN WATER 50 ML IV SCH (09:01)
[2020-08-15] MEDS: methylPREDNISolone SOD SUCC 125 MG/2 ML VIAL IV SCH ×2 (09:01→21:00)
[2020-08-15] MEDS: AZITHROMYCIN 500 MG in DEXTROSE 5% IN WATER 250 ML IV SCH (09:02)
[2020-08-15] MEDS: CELECOXIB 100 MG CAPSULE PO SCH ×2 (09:02→20:59)
--- NOTE | 2020-08-15 10:56 | Internal Med Progress Note ---
SUBJECTIVE Subjective Patient information: Note initiated : 08/15/20 at 10:52 am Service Date, if different from initiated Date: [] Patient: Tessie Fuentes a 65 y/o F admitted on 08/13/20 for Shortness of breath. Chief Complaint: History of present illness: Ms. Fuentes is a 65 year old F non-ST smoking/COPD who was hospitalized earlier this year with bacterial pneumonia and COPD exacerbation, she was in her baseline state of health until 1 week prior to presentation started noticing increasing cough productive sputum with purulence. Symptoms worsen with increasing dyspnea at rest along with fever that got patient concerned about developing pneumonia. She presents to the ER for evaluation Initial work-up was consistent with fever of 100.8, white count 18,000, chest infiltrates on imaging. Patient was started on antibiotic coverage after cultures were drawn along bronchodilators. Hospitalist service was consulted. Covid 19 test was sent out At the time of my evaluation patient is fairly anxious. She endorses that she delayed coming to the hospital due to financial reasons and prior hospital bills that she has been unable to pay. However she endorses to symptoms as above but denies weight loss/bloody stool/headache or photophobia. She further denies nausea vomiting but endorses loss of appetite but denies loss of taste or's smell 08/14-patient seen in room. No overnight events. No concerns per staff. On 2 L oxygen. White count 18.6. Anxious and tearful. COVID-19 test pending. Cultures negative so far. On antibiotic coverage. However feels better since a dmission. 08/15-worsening interval chest imaging. White count persistent elevation, await COVID-19 testing. Continue antibiotic coverage. On 2 L nasal cannula oxygen. Escalate antibiotics to cefepime. Initiate empiric COVID-19 treatment on remdesivir and maintain precautions. Patient feels more short of breath. Constitutional Vitals: Vital Signs Temp Pulse Resp BP Pulse Ox 98.3 F 68 20 101/65 93 08/15/20 08:00 08/15/20 08:00 08/15/20 08:00 08/15/20 08:00 08/15/20 08:00 Period Temp Pulse Resp BP Sys/Cortez Pulse Ox Last 24 Hr 97.1 F-98.3 F 50-82 16-20 101-122/55-76 89-96 Intake and Output 08/14/20 08/15/20 08/15/20 21:59 05:59 13:59 Intake Total 2290 450 Output Total 400 225 Balance 1890 225 Weight 92.079 kg On 2 L oxygen Labored breathing Anxious Intake & Output: Intake & Output 08/14/20 08/15/20 08/15/20 21:59 05:59 13:59 Intake Total 2290 450 Output Total 400 225 Balance 1890 225 Weight 92.079 kg Intake: IV 1250 Sodium Chloride 0.9% 1,000 ml @ 1000 50 mls/hr IV .Q20H [facility] Rx#: [id number] Zithromax 500 mg In Dextrose 5% 250 in Water 250 ml @ 250 mls/hr IV DAILY [facility] Rx#:[id number] Oral 1040 450 Output: Void Amount 400 225 Other: Urine Appearance Clear Clear Urine Color Bright Yellow Bright Yellow Urine Odor Normal # Bowel Movements 1 OBJ DATA Labs CBC & Chem 7: 08/15/20 06:25 08/15/20 06:25 Labs: Abnormal Lab Results 08/15/20 08/15/20 08/14/20 06:25 06:25 05:54 WBC 18.5 H RBC 3.07 L Hgb 9.4 L Hct 28.7 L MPV Neut % (Auto) Lymph % (Auto) Lymph # (Auto) [place] # (Auto) Seg Neutrophils % 81 H Lymphocytes % 8 L Absolute Neutrophils Carbon Dioxide 21 L Glucose 214 H 176 H Albumin 2.8 L 3.1 L Albumin/Globulin Ratio 0.9 L 0.9 L Triglycerides 176 H 08/14/20 08/13/20 08/13/20 05:44 16:30 16:30 WBC 18.6 H 17.9 H RBC 3.50 L 3.51 L Hgb 10.7 L 10.8 L Hct 32.4 L 32.4 L MPV 10.6 H Neut % (Auto) 83.6 H Lymph % (Auto) 7.8 L Lymph # (Auto) 1.39 L [place] # (Auto) 1.35 H Seg Neutrophils % 85 H Lymphocytes % 7 L Absolute Neutrophils 14.98 H Carbon Dioxide Glucose 115 H Albumin Albumin/Globulin Ratio Triglycerides Meds: Medications Acetaminophen (Tylenol) 650 mg PO Q4-6HP PRN; Protocol PRN Reason: Per Pain Protocol/Fever > 101 Last Admin: 08/15/20 08:59 Dose: 650 mg Documented by: Albuterol Sulfate (Ventolin) 2 puff INH Q4-6HP PRN PRN Reason: Wheezing Albuterol/Ipratropium (Combivent) 1 puff INH Q6HP PRN PRN Reason: shortness of breath Last Admin: 08/15/20 02:38 Dose: 1 puff Documented by: Bisacodyl (Dulcolax) 10 mg MS Q2-3DAYS PRN PRN Reason: Constipation Cefepime HCl (Maxipime) 2 gm IV Q8H [facility]; Protocol Celecoxib (Celebrex) 100 mg PO BID [facility] Last Admin: 08/15/20 09:02 Dose: Not Given Documented by: Citalopram Hydrobromide (Celexa) 40 mg PO DAILY [facility] Last Admin: 08/15/20 09:00 Dose: 40 mg Documented by: Docusate Sodium (Colace) 100 mg PO BID [facility] Last Admin: 08/15/20 09:00 Dose: 100 mg Documented by: Heparin Sodium (Porcine) (Heparin) 5,000 unit SQ Q12 [facility] Last Admin: 08/15/20 09:00 Dose: 5,000 unit Documented by: Potassium Chloride 40 meq/ (Dextrose) 520 mls @ 130 mls/hr IV UD PRN PRN Reason: K+ = or < 3.5 Acetaminophen (Ofirmev) 650 mg in 65 mls @ 130 mls/hr IV Q6HP PRN; Protocol PRN Reason: Per Pain Protocol/Fever > 101 Magnesium Sulfate (Magnesium Sulfate) 2 gm in 50 mls @ 50 mls/hr IV UD PRN PRN Reason: MG = or < 1.7 Sodium Chloride (Sodium Chloride 0.9%) 1,000 mls @ 50 mls/hr IV .Q20H [facility] Stop: 08/16/20 10:07 Last Admin: 08/14/20 20:40 Dose: 50 mls/hr Documented by: Melatonin (Melatonin 3mg Tablet) 3 mg PO HSP PRN PRN Reason: Insomnia Last Admin: 08/14/20 22:00 Dose: 3 mg Documented by: Methylprednisolone Sodium Succinate (Solu-Medrol) 60 mg IV Q12 [facility] Last Admin: 08/15/20 09:01 Dose: 60 mg Documented by: Ondansetron HCl (Zofran Odt) 4 mg SL Q4-6HP PRN; Protocol PRN Reason: Nausea And Vomiting Last Admin: 08/15/20 02:36 Dose: 4 mg Documented by: Ondansetron HCl (Zofran) 4 mg IV Q4-6HP PRN; Protocol PRN Reason: Nausea And Vomiting Polyethylene Glycol (Miralax) 17 gm PO DAILYP PRN PRN Reason: Constipation Potassium Chloride (Klor-Con) 40 meq PO DAILYP PRN PRN Reason: K+ < 3.5 Fluticasone/Salmeterol (Advair 250-50 Diskus) 1 puff INH Q12H [facility] Last Admin: 08/15/20 09:03 Dose: 1 inh Documented by: Senna/Docusate Sodium (Senna Plus Tablet) 1 tab PO HS [facility] Last Admin: 08/14/20 20:43 Dose: 1 tab Documented by: Sodium Chloride (Saline Flush) 10 ml IV Q8 [facility] Last Admin: 08/15/20 05:59 Dose: Not Given Documented by: Tramadol HCl (Ultram) 50 mg PO Q6HP PRN; Protocol PRN Reason: pain Last Admin: 08/14/20 20:41 Dose: 50 mg Documented by: A/P Narrative A/P Narrative: * Bilateral PNA-likely Covid pneumonia with superimposed bacterial pneumonia. Continue antibiotic coverage/await Covid test. Start remdesivir for empiric COVID-19 treatment * Acute hypoxic respiratory failure secondary pneumonia. Worsening interval imaging. Start remdesivir * Sepsis-secondary to above. Escalate antibiotic coverage on cefepime. White count over 18 K * Acute exacerbation of COPD secondary to above continue steroids and bronchodilators * Full code * Prophylaxis heparin Plan * Continue antibiotic coverage and de-escalate based on cultures * Await COVID-19 testing/continue precautions * Wean oxygen as tolerated * steroids bronchodilators * remdesivir * PT OT nutrition support * Discharge planning Time Spent With Patient Time: Total time spent is greater than 50% in coordination of care (as documented) at patient's floor/unit and/or counseling patient: QUALITY Stroke Symptom Onset Unknown: No VTE Deep Vein Thrombosis/Pulmonary Embolism Present on Admission: No
[2020-08-15] MEDS: traMADol 50 MG TABLET PO PRN (11:27)
[2020-08-15] MEDS: CEFEPIME 2 GM VIAL IV SCH ×3 (11:28→22:14)
[2020-08-15] MEDS ORDERED: REMDESIVIR 200 MG in 0.9 % SODIUM CHLORIDE 250 ML IV ONE (11:30)
--- NOTE | 2020-08-15 13:02 | XRay Report ---
CLINICAL INFORMATION: bibasilar infiltrates COMPARISON: 08/13/2020. FINDINGS: Heart is normal for technique. Mediastinum and pulmonary vessels are unremarkable. There is only mild bibasilar airspace disease likely atelectasis chest decreased. No effusion IMPRESSION: Mild bibasilar atelectasis. No mya infiltrate Interpreted and Authenticated by: Jacinto Guzman 08/15/20
[2020-08-15] MEDS: 0.9 % SODIUM CHLORIDE 1,000 ML IV SCH (15:05)
[2020-08-15] MEDS: SENNOSIDES/DOCUSATE SODIUM 1 TAB TABLET PO SCH (20:59)
[2020-08-15] MEDS: MELATONIN 3 MG TABLET PO PRN (21:01)
[2020-08-16] MEDS: IPRATROPIUM/ALBUTEROL SULFATE 1 PUFF INHALER INH PRN ×2 (00:21→14:18)
[2020-08-16] MEDS: FLUTICASONE/SALMETEROL 250/50 INHALER #14 INH SCH ×4 (00:22→23:22)
[2020-08-16] MEDS: SENNOSIDES/DOCUSATE SODIUM 1 TAB TABLET PO SCH ×2 (02:24→21:20)
[2020-08-16] MEDS: DOCUSATE SODIUM 100 MG CAPSULE PO SCH ×3 (02:24→21:20)
[2020-08-16] MEDS: 0.9 % SODIUM CHLORIDE 10 ML SYRINGE IV SCH ×3 (06:57→21:20)
[2020-08-16] MEDS: CELECOXIB 100 MG CAPSULE PO SCH ×2 (07:46→21:21)
[2020-08-16] MEDS: methylPREDNISolone SOD SUCC 125 MG/2 ML VIAL IV SCH ×2 (07:48→21:19)
[2020-08-16] MEDS: CEFEPIME 2 GM VIAL IV SCH ×3 (07:48→21:20)
[2020-08-16] MEDS: HEPARIN 5,000 UNIT/ML VIAL SQ SCH ×2 (07:49→21:19)
[2020-08-16] MEDS: CITALOPRAM 20 MG TABLET PO SCH (07:52)
[2020-08-16 07:53] LABS: ALT/SGPT 27 U/L (<40); AST/SGOT 30 U/L (<32); Albumin 2.8 gm/dL (3.2-5.2); Albumin/Globulin Ratio 0.9 (1.0-2.3); Alkaline Phosphatase 61 U/L (39-117); Bilirubin,Direct < 0.2 mg/dL (<0.3); Bilirubin,Total < 0.2 mg/dL (0.1-1.0); Blood Urea Nitrogen 22 mg/dL (8-23); Calcium 8.6 mg/dL (8.6-10.4); Carbon Dioxide 22 mmol/L (22-30); Chloride 105 mmol/L (96-108); Globulin 3.1 gm/dL (2.2-3.7); Glomerular Filtration Rate 91; Glucose 142 mg/dL (70-105); Lactate Dehydrogenase 174 U/L (135-225); Phosphorous 3.9 mg/dL (2.5-4.5); Triglycerides 160 mg/dL (<150); Uric Acid 5.4 mg/dL (2.5-8.0)
[2020-08-16] MEDS: traMADol 50 MG TABLET PO PRN ×2 (08:01→14:19)
[2020-08-16] MEDS ORDERED: REMDESIVIR 100 MG in 0.9 % SODIUM CHLORIDE 250 ML IV SCH (09:00)
[2020-08-16 09:09] LABS: Band Neutrophils % 5 % (0-10); Hematocrit 29.3 % (36.0-48.0); Hemoglobin 9.4 g/dL (12.0-15.0); Lymphocytes % 7 % (15-49); Mean Cell Volume 95.4 fL (80.0-100.0); Mean Corpuscular HGB Conc 32.1 g/dL (31.0-36.0); Mean Platelet Volume 10.2 fL (7.4-10.4); Myelocytes % 1 %; Platelet Count 358 K/mcL (140-440); Platelet Estimate NORMAL (Normal); RBC 3.07 M/mcL (4.00-5.20); RBC Morphology NORMAL (Normal); Red Cell Distribution Width 13.5 % (11.5-14.5); Segmented Neutrophils % 87 % (38-78); WBC 16.9 K/mcL (4.5-11.0)
[2020-08-16] MEDS ORDERED: traZODone HCL 50 MG TABLET PO PRN (10:53)
--- NOTE | 2020-08-16 11:28 | Internal Med Progress Note ---
SUBJECTIVE Subjective Patient information: Note initiated : 08/16/20 at 11:25 am Service Date, if different from initiated Date: [] Patient: Tessie Fuentes a 65 y/o F admitted on 08/13/20 for Shortness of breath. Chief Complaint: History of present illness: Ms. Fuentes is a 65 year old F non-ST smoking/COPD who was hospitalized earlier this year with bacterial pneumonia and COPD exacerbation, she was in her baseline state of health until 1 week prior to presentation started noticing increasing cough productive sputum with purulence. Symptoms worsen with increasing dyspnea at rest along with fever that got patient concerned about developing pneumonia. She presents to the ER for evaluation Initial work-up was consistent with fever of 100.8, white count 18,000, chest infiltrates on imaging. Patient was started on antibiotic coverage after cultures were drawn along bronchodilators. Hospitalist service was consulted. Covid 19 test was sent out At the time of my evaluation patient is fairly anxious. She endorses that she delayed coming to the hospital due to financial reasons and prior hospital bills that she has been unable to pay. However she endorses to symptoms as above but denies weight loss/bloody stool/headache or photophobia. She further denies nausea vomiting but endorses loss of appetite but denies loss of taste or's smell 08/14-patient seen in room. No overnight events. No concerns per staff. On 2 L oxygen. White count 18.6. Anxious and tearful. COVID-19 test pending. Cultures negative so far. On antibiotic coverage. However feels better since admission. 08/15-worsening interval chest imaging. White count persistent elevation, await COVID-19 testing. Continue antibiotic coverage. On 2 L nasal cannula oxygen. Escalate antibiotics to cefepime. Initiate empiric COVID-19 treatment on remdesivir and maintain precautions. Patient feels more short of breath. 08/16-patient doing a lot better. Remdesivir discontinued due to COVID-19 neg ative. Continue steroids and bronchodilators. Continue antibiotics. Patient feeling a lot better since previous day. Possible discharge in 24 hours. Currently on 2 L oxygen. Weaning as tolerated. Constitutional Vitals: Vital Signs Temp Pulse Resp BP Pulse Ox 98.7 F 54 L 16 120/65 96 08/16/20 07:35 08/16/20 07:35 08/16/20 07:35 08/16/20 07:35 08/16/20 08:00 Period Temp Pulse Resp BP Sys/Cortez Pulse Ox Last 24 Hr 98.0 F-98.7 F 45-70 16-16 107-124/55-67 94-97 Intake and Output 08/15/20 08/16/20 08/16/20 21:59 05:59 13:59 Intake Total 2121 800 240 Output Total 850 750 Balance 1271 50 240 Weight 93.667 kg alert oriented no anxiety Nonlabored breathing Ambulating Intake & Output: Intake & Output 08/15/20 08/16/20 08/16/20 21:59 05:59 13:59 Intake Total 2121 800 240 Output Total 850 750 Balance 1271 50 240 Weight 93.667 kg Intake: IV 921 Sodium Chloride 0.9% 1,000 ml @ 921 50 mls/hr IV .Q20H [facility] Rx#: [id number] Oral 400 800 240 GI Tube Flush 800 Output: Void Amount 850 750 Other: Meal Dinner Breakfast Percent of Meal Consumed 100% 100% Feeding Ability Independent Independent Urine Appearance Clear Clear Clear Urine Color Pale Bright Yellow Bright Yellow Urine Odor Normal Normal Stool Size Moderate Stool Color Brown Stool Consistency Soft # Voids 1 OBJ DATA Labs CBC & Chem 7: 08/16/20 05:35 08/16/20 05:35 Labs: Abnormal Lab Results 08/16/20 08/16/20 08/15/20 05:35 05:35 06:25 WBC 16.9 H RBC 3.07 L Hgb 9.4 L Hct 29.3 L MPV Neut % (Auto) Lymph % (Auto) Lymph # (Auto) [place] # (Auto) Seg Neutrophils % 87 H Lymphocytes % 7 L Absolute Neutrophils Carbon Dioxide 21 L Glucose 142 H 214 H Albumin 2.8 L 2.8 L Albumin/Globulin Ratio 0.9 L 0.9 L Triglycerides 160 H 176 H 08/15/20 08/14/20 08/14/20 06:25 05:54 05:44 WBC 18.5 H 18.6 H RBC 3.07 L 3.50 L Hgb 9.4 L 10.7 L Hct 28.7 L 32.4 L MPV Neut % (Auto) Lymph % (Auto) Lymph # (Auto) [place] # (Auto) Seg Neutrophils % 81 H 85 H Lymphocytes % 8 L 7 L Absolute Neutrophils Carbon Dioxide Glucose 176 H Albumin 3.1 L Albumin/Globulin Ratio 0.9 L Triglycerides 08/13/20 08/13/20 16:30 16:30 WBC 17.9 H RBC 3.51 L Hgb 10.8 L Hct 32.4 L MPV 10.6 H Neut % (Auto) 83.6 H Lymph % (Auto) 7.8 L Lymph # (Auto) 1.39 L [place] # (Auto) 1.35 H Seg Neutrophils % Lymphocytes % Absolute Neutrophils 14.98 H Carbon Dioxide Glucose 115 H Albumin Albumin/Globulin Ratio Triglycerides Meds: Medications Acetaminophen (Tylenol) 650 mg PO Q4-6HP PRN; Protocol PRN Reason: Per Pain Protocol/Fever > 101 Last Admin: 08/15/20 19:20 Dose: 650 mg Documented by: Albuterol Sulfate (Ventolin) 2 puff INH Q4-6HP PRN PRN Reason: Wheezing Albuterol/Ipratropium (Combivent) 1 puff INH Q6HP PRN PRN Reason: shortness of breath Last Admin: 08/16/20 00:21 Dose: 1 puff Documented by: Bisacodyl (Dulcolax) 10 mg AL Q2-3DAYS PRN PRN Reason: Constipation Cefepime HCl (Maxipime) 2 gm IV Q8H [facility]; Protocol Last Admin: 08/16/20 07:48 Dose: 2 gm Documented by: Celecoxib (Celebrex) 100 mg PO BID [facility] Last Admin: 08/16/20 07:46 Dose: Not Given Documented by: Citalopram Hydrobromide (Celexa) 40 mg PO DAILY [facility] Last Admin: 08/16/20 07:52 Dose: 40 mg Documented by: Docusate Sodium (Colace) 100 mg PO BID [facility] Last Admin: 08/16/20 07:53 Dose: 100 mg Documented by: Heparin Sodium (Porcine) (Heparin) 5,000 unit SQ Q12 [facility] Last Admin: 08/16/20 07:49 Dose: 5,000 unit Documented by: Potassium Chloride 40 meq/ (Dextrose) 520 mls @ 130 mls/hr IV UD PRN PRN Reason: K+ = or < 3.5 Acetaminophen (Ofirmev) 650 mg in 65 mls @ 130 mls/hr IV Q6HP PRN; Protocol PRN Reason: Per Pain Protocol/Fever > 101 Magnesium Sulfate (Magnesium Sulfate) 2 gm in 50 mls @ 50 mls/hr IV UD PRN PRN Reason: MG = or < 1.7 Melatonin (Melatonin 3mg Tablet) 3 mg PO HSP PRN PRN Reason: Insomnia Last Admin: 08/15/20 21:01 Dose: 3 mg Documented by: Methylprednisolone Sodium Succinate (Solu-Medrol) 60 mg IV Q12 [facility] Last Admin: 08/16/20 07:48 Dose: 60 mg Documented by: Ondansetron HCl (Zofran Odt) 4 mg SL Q4-6HP PRN; Protocol PRN Reason: Nausea And Vomiting Last Admin: 08/15/20 15:05 Dose: 4 mg Documented by: Ondansetron HCl (Zofran) 4 mg IV Q4-6HP PRN; Protocol PRN Reason: Nausea And Vomiting Polyethylene Glycol (Miralax) 17 gm PO DAILYP PRN PRN Reason: Constipation Potassium Chloride (Klor-Con) 40 meq PO DAILYP PRN PRN Reason: K+ < 3.5 Fluticasone/Salmeterol (Advair 250-50 Diskus) 1 puff INH Q12H [facility] Last Admin: 08/16/20 10:58 Dose: Not Given Documented by: Senna/Docusate Sodium (Senna Plus Tablet) 1 tab PO HS [facility] Last Admin: 08/16/20 02:24 Dose: 1 tab Documented by: Sodium Chloride (Saline Flush) 10 ml IV Q8 [facility] Last Admin: 08/16/20 06:57 Dose: Not Given Documented by: Tramadol HCl (Ultram) 50 mg PO Q6HP PRN; Protocol PRN Reason: pain Last Admin: 08/16/20 08:01 Dose: 50 mg Documented by: Trazodone HCl (Desyrel) 50 mg PO HSP PRN PRN Reason: Insomnia A/P Narrative A/P Narrative: * Bilateral [id number] negative. Likely community-acquired. Continue cefepime . Discontinue remdesivir * Acute hypoxic respiratory failure secondary pneumonia. Worsening interval imaging. Start remdesivir * Sepsis-secondary to above. Escalate antibiotic coverage on cefepime. White count over 18 K * Acute exacerbation of COPD secondary to above continue steroids and bronchodilators * Full code * Prophylaxis heparin Plan * Continue antibiotic coverage * DC remdesivir * Wean oxygen as tolerated * Continue steroids bronchodilators * PT OT nutrition support * Discharge planning Possibly in 24 to 40 hours pending clinical improvement Time Spent With Patient Time: Total time spent is greater than 50% in coordination of care (as documented) at patient's floor/unit and/or counseling patient: QUALITY Stroke Symptom Onset Unknown: No VTE Deep Vein Thrombosis/Pulmonary Embolism Present on Admission: No
[2020-08-16] MEDS: ONDANSETRON 4 MG ODT TABLET SL PRN (12:56)
[2020-08-17] MEDS: IPRATROPIUM/ALBUTEROL SULFATE 1 PUFF INHALER INH PRN (03:39)
[2020-08-17] MEDS: CEFEPIME 2 GM VIAL IV SCH (05:57)
[2020-08-17] MEDS: 0.9 % SODIUM CHLORIDE 10 ML SYRINGE IV SCH (05:58)
[2020-08-17] MEDS: traMADol 50 MG TABLET PO PRN ×2 (06:48→12:21)
[2020-08-17] MEDS: HEPARIN 5,000 UNIT/ML VIAL SQ SCH (07:57)
[2020-08-17] MEDS: DOCUSATE SODIUM 100 MG CAPSULE PO SCH (07:57)
[2020-08-17] MEDS: methylPREDNISolone SOD SUCC 125 MG/2 ML VIAL IV SCH (07:57)
[2020-08-17] MEDS: CELECOXIB 100 MG CAPSULE PO SCH (07:57)
[2020-08-17] MEDS: CITALOPRAM 20 MG TABLET PO SCH (07:57)
[2020-08-17 08:28] LABS: Band Neutrophils % 2 % (0-10); Hematocrit 31.3 % (36.0-48.0); Lymphocytes % 17 % (15-49); Mean Cell Volume 95.4 fL (80.0-100.0); Mean Corpuscular HGB Conc 31.9 g/dL (31.0-36.0); Metamyelocytes % 2 %; Monocytes % (Manual) 3 % (1-12); Myelocytes % 3 %; Platelet Count 424 K/mcL (140-440); Platelet Estimate NORMAL (Normal); RBC 3.28 M/mcL (4.00-5.20); RBC Morphology NORMAL (Normal); Reactive Lymphocytes 1 % (0-2); Red Cell Distribution Width 13.4 % (11.5-14.5); Segmented Neutrophils % 72 % (38-78); WBC 17.6 K/mcL (4.5-11.0)
[2020-08-17 09:23] LABS: ALT/SGPT 21 U/L (<40); AST/SGOT 15 U/L (<32); Albumin 3.2 gm/dL (3.2-5.2); Albumin/Globulin Ratio 1.2 (1.0-2.3); Alkaline Phosphatase 55 U/L (39-117); Bilirubin,Direct < 0.2 mg/dL (<0.3); Bilirubin,Total 0.2 mg/dL (0.1-1.0); Blood Urea Nitrogen 24 mg/dL (8-23); Calcium 8.7 mg/dL (8.6-10.4); Carbon Dioxide 26 mmol/L (22-30); Chloride 107 mmol/L (96-108); Globulin 2.6 gm/dL (2.2-3.7); Glomerular Filtration Rate 120; Glucose 130 mg/dL (70-105); Lactate Dehydrogenase 182 U/L (135-225); Phosphorous 4.4 mg/dL (2.5-4.5); Triglycerides 105 mg/dL (<150); Uric Acid 4.5 mg/dL (2.5-8.0)
--- NOTE | 2020-08-17 09:29 | Discharge Summary ---
Discharge Provider Provider Patient information: Note initiated : 08/17/20 at 9:26 am Service Date, if different from initiated Date: [] Patient: Tessie Fuentes a 65 y/o F admitted on 08/13/20 for Shortness of breath. Chief Complaint: Discharge diagnosis * Bilateral CPL-snszswndv-doxponbs. Continue antibiotic coverage. Covid negative * Acute hypoxic respiratory failure secondary to pneumonia. Clinically improved. Now on room air. * Sepsis-secondary to above. Escalate antibiotic coverage on cefepime. White count over 18 K * Acute exacerbation of COPD secondary to above clinically improved on steroids and bronchodilators Brief hospital course History of present illness: Ms. Fuentes is a 65 year old F non-ST smoking/COPD who was hospitalized earlier this year with bacterial pneumonia and COPD exacerbation, she was in her baseline state of health until 1 week prior to presentation started noticing increasing cough productive sputum with purulence. Symptoms worsen with increasing dyspnea at rest along with fever that got patient concerned about developing pneumonia. She presents to the ER for evaluation Initial work-up was consistent with fever of 100.8, white count 18,000, chest infiltrates on imaging. Patient was started on antibiotic coverage after cultures were drawn along bronchodilators. Hospitalist service was consulted. Covid 19 test was sent out At the time of my evaluation patient is fairly anxious. She endorses that she delayed coming to the hospital due to financial reasons and prior hospital bills that she has been unable to pay. However she endorses to symptoms as above but denies weight loss/bloody stool/headache or photophobia. She further denies nausea vomiting but endorses loss of appetite but denies loss of taste or's smell 08/14-patient seen in room. No overnight events. No concerns per staff. On 2 L oxygen. White count 18.6. Anxious and tearful. COVID-19 test pending. Cultures negative so far. On antibiotic coverage. However feels better since admission. 08/15-worsening interval chest imaging. White count persistent elevation, await COVID-19 testing. Continue antibiotic coverage. On 2 L nasal cannula oxygen. Escalate antibiotics to cefepime. Initiate empiric COVID-19 treatment on remdesivir and maintain precautions. Patient feels more short of breath. 08/16-patient doing a lot better. Remdesivir discontinued due to COVID-19 negative. Continue steroids and bronchodilators. Continue antibiotics. Patient feeling a lot better since previous day. Possible discharge in 24 hours. Currently on 2 L oxygen. Weaning as tolerated. 08/17-patient doing well. No overnight events. No concerns per staff. No fever chills, on room air. Shortness of breath resolved. Discharging on oral steroid for additional 48 hours, continue antibiotic for additional 5 days. Date of admission: 08/13/20 22:10 Discharge date: 08/17/20 Primary care physician: Pilo Ramon MD Consults: 08/14/20 08:32 Consult to Physician [CONS] Routine Comment: Consulting Provider: Parker Montez Reason For Exam: Physician to Consult Discharge Meds Discharge Medications Home Medications albuterol sulfate 2 puff INH Q4-6HP PRN #1 inhaler 12/21/19 [Rx Confirmed 08/13/20 Last Taken 08/13/20 2 puffs] ipratropium 20 mcg-albuterol 100 mcg/actuation mist for inhalation 1 puff INHALATION Q6H PRN #4 g 05/20/20 [Rx Confirmed 08/13/20 Last Taken 08/13/20 Inhalation] celecoxib 100 mg capsule 100 mg PO BID 30 Days #60 cap 06/19/20 [Rx Confirmed 08/13/20 Last Taken 08/13/20 100 mg] fluticasone 250 mcg-salmeterol 50 mcg/dose blistr powdr for inhalation 1 inh INHALATION Q12H #180 each 07/08/20 [Rx Confirmed 08/13/20 Last Taken 08/13/20 1 Inhalation] citalopram 40 mg tablet 40 mg PO QDAY #90 tab 07/22/20 [Rx Confirmed 08/13/20 Last Taken 08/13/20 40 mg] tramadol 50 mg tablet 50 mg PO Q6H PRN #100 tab 07/22/20 [Rx Confirmed 08/13/20 Last Taken 08/13/20 2 tabs] cefdinir 300 mg PO BID #10 cap 08/17/20 [Rx Last Taken Unknown] prednisone 40 mg PO QDAY #4 tab 08/17/20 [Rx Last Taken Unknown] COURSE Hospital Course Hospital course: . Discharge diagnosis: . Time Spent with Patient Time attestation: Total time spent providing and/or coordinating discharge services: EXAM Constitutional Vitals: Temp Pulse Resp BP Pulse Ox 98.4 F 50 L 18 106/58 90 08/17/20 08:00 08/17/20 08:00 08/17/20 08:00 08/17/20 08:00 08/17/20 08:00 Discharge Data Data Completed and Pending Labs on day of discharge: Labs from last 24 hours 08/17/20 08/17/20 05:45 05:45 WBC 17.6 H RBC 3.28 L Hgb 10.0 L Hct 31.3 L MCV 95.4 MCH 30.5 MCHC 31.9 RDW 13.4 Plt Count 424 MPV 10.0 Seg Neutrophils % 72 Band Neutrophils % 2 Lymphocytes % 17 Monocytes % (Manual) 3 Metamyelocytes % 2 Myelocytes % 3 Reactive Lymphocytes 1 Platelet Estimate Normal RBC Morphology Normal Sodium 142 Potassium 5.2 H Chloride 107 Carbon Dioxide 26 Anion Gap 9.0 BUN 24 H Creatinine 0.3 L GFR Calculation 120 Glucose 130 H Uric Acid 4.5 Calcium 8.7 Phosphorus 4.4 Magnesium 2.4 Total Bilirubin 0.2 Direct Bilirubin < 0.2 GGT 26 AST 15 ALT 21 Alkaline Phosphatase 55 Lactate Dehydrogenase 182 Total Protein 5.8 L Albumin 3.2 Globulin 2.6 Albumin/Globulin Ratio 1.2 Triglycerides 105 Preliminary micro results at discharge 08/13/20 16:43 Blood Culture - Preliminary Blood 08/13/20 16:30 Blood Culture - Preliminary Blood Discharge Plan Patient/Caregiver Discharge Instructions Activity: increase activity as tolerated Diet: Regular Diet Instructions: Community Acquired Pneumonia (ED) Activity Restrictions/Additional Instructions: Follow-up primary care physician 5 to 7 days Oral prednisone for additional 48 hours Antibiotic for additional 5 days Return to ER if worsening shortness of breath fever chills Prescriptions: New cefdinir 300 MG capsule 300 mg PO BID Qty: 10 RF: 0 prednisone 20 mg tablet 40 mg PO QDAY Qty: 4 RF: 0 Continued Combivent Respimat 20-100 mcg/actuation mist 1 puff INHALATION Q6H PRN (Reason: shortness of breath) Qty: 4 RF: 5 celecoxib [Celebrex] 100 mg capsule 100 mg PO BID 30 Days Qty: 60 RF: 0 Advair Diskus 250-50 mcg/dose blister with device 1 inh INHALATION Q12H Qty: 180 RF: 1 citalopram [Celexa] 40 mg tablet 40 mg PO QDAY Qty: 90 RF: 1 tramadol [Ultram] 50 mg tablet 50 mg PO Q6H PRN (Reason: pain) Qty: 100 RF: 0 albuterol sulfate 1 PUFF inhaler 2 puff INH Q4-6HP PRN (Reason: Wheezing) Qty: 1 RF: 0 Follow Up Plan Follow up with: Pilo Ramon MD [Primary Care Provider] - Patient Disposition: Home, Self-Care Prognosis: Undetermined Rehab Potential: Good I certify that the patient requires SNF services: No Overall status at discharge: patient is progressing back to baseline Discharge Orders: Discharge Order (Routine); Ordered 08/17/20 Ordered By: Parker COLUNGA VTE Deep Vein Thrombosis/Pulmonary Embolism Present on Admission: No
[2020-08-17] MEDS: FLUTICASONE/SALMETEROL 250/50 INHALER #14 INH SCH (12:21)
[2020-08-17] MEDS: ONDANSETRON 4 MG ODT TABLET SL PRN (12:21)
== END 2020-08-17 12:55 | disposition home or self-care (01) | DRG 871 ==
LOC: ED 15:35 → MEDSUR 22:10
PROVIDERS: ADMIT Internal Medicine; ATTEND Internal Medicine

== ENCOUNTER 2024-10-21 10:57 | Observation (INO) ==
[2024-10-21] MEDS ORDERED: IOPAMIDOL 100 ML BOTTLE IV ONE (10:58)
[2024-10-21] MEDS: TRANEXAMIC ACID 1,000 MG/10 ML VIAL IV ONE (11:14)
[2024-10-21] MEDS: IPRATROPIUM/ALBUTEROL 3 ML AMPUL.NEB NEB ONE ×2 (11:22→14:55)
[2024-10-21] MEDS: 0.9 % SODIUM CHLORIDE 250 ML IV SCH (11:32)
[2024-10-21 11:41] LABS: Eosinophils # (Auto) 0.65 K/mcL (0.00-0.70); Eosinophils % (Auto) 6.8 % (0.0-7.0); Hematocrit 37.7 % (34.1-44.9); Hemoglobin 12.2 g/dL (11.2-15.7); Lymphocytes # (Auto) 3.94 K/mcL (1.50-4.80); Lymphocytes % (Auto) 41.2 % (15.5-49.0); Mean Cell Volume 96.7 fL (80.0-100.0); Mean Corpuscular HGB Conc 32.4 g/dL (31.0-36.0); Mean Platelet Volume 10.7 fL (8.8-12.5); Monocytes % (Auto) 6.3 % (1.0-12.0); Neutrophils % (Auto) 44.6 % (38.0-78.0); Platelet Count 274 K/mcL (140-440); Red Cell Distribution Width 11.9 % (11.5-14.5); WBC 9.6 K/mcL (4.5-11.0)
[2024-10-21 11:57] LABS: ALT/SGPT 8 U/L (<40); AST/SGOT 22 U/L (<32); Albumin/Globulin Ratio 1.9 (1.0-2.3); Alkaline Phosphatase 48 U/L (39-117); Bilirubin,Total 0.4 mg/dL (0.1-1.0); Blood Urea Nitrogen 17 mg/dL (8-23); Calcium 8.8 mg/dL (8.6-10.4); Carbon Dioxide 23 mmol/L (22-30); Chloride 106 mmol/L (96-108); Globulin 2.1 gm/dL (2.2-3.7); Glomerular Filtration Rate 75; Glucose 172 mg/dL (70-105); Sodium 141 mmol/L (133-145)
[2024-10-21] MEDS: NICOTINE 21 MG PATCH TOPICAL ONE (15:26)
[2024-10-21] MEDS ORDERED: ONDANSETRON 4 MG/2 ML VIAL IV PRN (16:08)
[2024-10-21] MEDS ORDERED: oxyCODONE IR 5 MG TABLET PO PRN (16:08)
[2024-10-21] MEDS ORDERED: HYDROmorphone 0.5 MG/0.5 ML SYRINGE IV PRN (16:08)
[2024-10-21] MEDS: IPRATROPIUM/ALBUTEROL 3 ML AMPUL.NEB NEB SCH (19:31)
[2024-10-21] MEDS: 0.9 % SODIUM CHLORIDE 10 ML SYRINGE IV SCH (21:10)
[2024-10-21] MEDS: ZOLPIDEM 5 MG TABLET PO PRN (21:10)
[2024-10-21] MEDS: ACETAMINOPHEN 325 MG TABLET PO PRN (21:14)
[2024-10-21] MEDS: SENNOSIDES 1 TABLET PO SCH (21:15)
[2024-10-21] MEDS: DOCUSATE SODIUM 100 MG CAPSULE PO SCH (21:15)
[2024-10-22 06:11] LABS: Hematocrit 28.7 % (34.1-44.9); Hemoglobin 9.4 g/dL (11.2-15.7); Mean Corpuscular HGB Conc 32.8 g/dL (31.0-36.0); Platelet Count 212 K/mcL (140-440); RBC 2.96 M/mcL (3.59-5.38); Red Cell Distribution Width 12.1 % (11.5-14.5); WBC 5.8 K/mcL (4.5-11.0)
[2024-10-22 07:11] LABS: Eosinophils % (Manual) 5 % (0-7); Lymphocytes % 28 % (15-49); Monocytes % (Manual) 3 % (1-12); Platelet Estimate NORMAL (Normal); RBC Morphology NORMAL (Normal); Segmented Neutrophils % 64 % (38-78)
[2024-10-22] MEDS: FLUTICASONE/SALMETEROL 250/50 INHALER #14 INH SCH (10:40)
[2024-10-22 15:12] LABS: Hematocrit 30.7 % (34.1-44.9); Hemoglobin 10.2 g/dL (11.2-15.7)
[2024-10-22 15:18] VITALS: TEMP 98.3
[2024-10-22 16:44] VITALS: O2SAT 93
[2024-10-23] MEDS ORDERED: CITALOPRAM 20 MG TABLET PO SCH (09:00)
== END 2024-10-22 16:20 | disposition home or self-care (01) ==
LOC: ICU 10:57 → ED 10:57 → ICU 15:55
PROVIDERS: ADMIT Internal Medicine; ATTEND Internal Medicine